=== PATIENT | female | born 1995 | race Caucasian/White ===

== ENCOUNTER 2019-05-22 09:08 | Emergency (ER) | payer OTHER, MEDICAID, SELFPAY ==
[2019-05-22 09:31] VITALS: BP 123/95; PULSE 65; RESP 18; TEMP 36.7; O2SAT 98; BMI 35.4
--- NOTE | 2019-05-22 09:39 | ED_ITS ---
Entered by Roland Doll, acting as scribe for HPI - Female Genitourinary General: Chief complaint: Vaginal Bleeding Stated complaint: bleeding/cramping 12wks preg Time Seen by Provider: 05/22/19 09:46 History of Present Illness: HPI Narrative: 24 yo female presents with vaginal bleeding, abd cramping. Pt states that this has been going on for 5 days. Pt states that she is . Pt states that this is her second . Pt states that she has been seen by Dr. Newsome at 6-7 weeks. Pt states that she has vaginal soreness. Pt states that she has some discharge but nothing abnormal. Pt states that she has had a headcold. MD elicited complaint: vaginal bleeding Onset (ago): day(s) (5 days) Location of symptoms: vaginal and low back Quality of pain: cramping and dull Consistency: intermittent Vaginal discharge: white Vaginal bleeding: moderate Associated symptoms: Reports abdominal pain, vaginal bleeding (Vaginal bleeding the combination of old and new blood coming from cervical loss.) and vaginal discharge; Deny headache(s), nausea or syncope Patient : Yes Date of Last Menstrual Period: 02/26/19 Review of Systems Const: Denies: fever, chills, body aches, fatigue, malaise or night sweats Eyes: Denies: change in vision or blurry vision ENMT: Denies: throat pain, oral sores/lesions, dental pain, nasal discharge or nasal congestion Card: Denies: chest pain, palpitations, irregular heart rhythm, edema, syncope, shortness of breath on exertion, shortness of breath when lying down or leg pain with exertion Resp: Denies: shortness of breath, productive cough, non-productive cough or wheezing GI: Reports: abdominal pain and cramping; Denies: nausea, vomiting, vomiting blood, coffee grounds in vomit, difficulty swallowing, heartburn/indigestion, diarrhea, constipation, blood in stool or black tarry stool : Reports: vaginal bleeding and vaginal discharge; Denies: flank pain, painful urination, urinary frequency, urinary urgency, urinary incontinence, blood in urine or pelvic pain Musc: Reports: back pain; Denies: neck pain, extremity pain, extremity swelling, joint pain or joint swelling Skin/Breast: Denies: rash, itching or redness Neuro: Denies: headache, numbness in extremities, weakness in extremities, c hanges in sensation, lack of coordination, difficulty walking, frequent falls, dizziness, vertigo or confusion Endo: Denies: excessive urination, excessive thirst, tired all the time or cold intolerance Sung/Lymph: Denies: easy bruising, easy bleeding, petechiae, enlarged lymph nodes or tender lymph nodes PFSH ED PFSH: Statuses (acute, chronic, etc) shown below reflect problem list status as previously entered and may not be historically accurate Surgical History History of hip surgery (Acute) Hx of tonsillectomy (Acute) Social History Smoking and tobacco status: never smoked Female Reproductive History: Date of last menstrual period: 02/26/19 Physical Exam Const: COMMON NORMALS: average body habitus, oriented x3 and alert GENERAL APPEARANCE: cooperative, comfortable, well kempt and well developed ORIENTATION/CONSCIOUSNESS: Yes awake, Yes oriented to person and Yes oriented to place HENMT: COMMON NORMALS: normocephalic, head/scalp atraumatic, EAC's normal, TM's normal bilaterally, external nose normal, moist oral mucous membranes and oropharynx normal HEAD & SCALP: normocephalic and atraumatic NOSE: external nose normal EXTERNAL AUDITORY CANAL: EAC's normal TYMPANIC MEMBRANE: TM's normal bilaterally MOUTH: oral and palatal mucosa normal, lip normal and tongue normal THROAT: posterior oropharynx normal and tonsils no rmal Eye: COMMON NORMALS: PERRL, EOMs intact bilaterally, conjunctivae normal and no scleral icterus CONJUNCTIVA: Yes conjunctivae normal PUPIL: Yes PERRL Neck/C-Spine: COMMON NORMALS: full ROM, no lymphadenopathy, supple, no meningeal signs and thyroid normal THYROID: thyroid normal and asymmetrical Lymph: LYMPHATIC: no lymphadenopathy noted Resp: COMMON NORMALS: normal respiratory effort, no retractions, no use of accessory muscles and clear to auscultation bilaterally AUSCULTATION: clear to auscultation bilaterally Cardio: COMMON NORMALS: regular rate and regular rhythm RATE: regular rate RHYTHM: regular rhythm HEART SOUNDS: no murmurs GI: COMMON NORMALS: normal to inspection, nondistended, normoactive bowel sounds, soft to palpation and no hepatosplenomegaly PALPATION: Yes soft and Yes no hepatosplenomegaly : COMMON NORMALS: Yes no CVA tenderness BLADDER/KIDNEY EXAM: Yes no CVA tenderness SPECULUM EXAM - VAGINA: Yes vaginal bleeding (Vaginal bleeding the combination of old and new blood coming from cervical loss.) Amount: medium/moderate SPECULUM EXAM - CERVIX: Yes cervical os open (No products of conception in the office.) and No tissue present in the cervical os OB/EXTERNAL & SPECULUM: cervical os open (No products of conception in the office.) and vaginal bleeding (Vaginal bleeding the combination of old and new blood coming from cervical loss.) Back/Pelvis: COMMON NORMALS: no CVA tenderness LUMBAR SPINE/LOWER BACK: Yes normal to inspection Extremity: COMMON NORMALS: no clubbing, cyanosis or edema, no calf tenderness and no pedal edema Neuro: COMMON NORMALS: oriented x3 SENSORIUM/ORIENTATION: Yes alert, Yes oriented to person and Yes oriented to place MENINGEAL SIGNS: Yes no meningeal signs Psych: APPEARANCE: Yes well kempt Skin: COMMON NORMALS: no rashes or lesions noted and skin turgor normal GENERAL SKIN EXAM: no rashes or lesions noted and turgor normal Course ED course: Discussed with the patient suspect she had miscarriage sometime ago already her beta-hCG is down to 6500 range she will need another beta-hCG later this week. Discussed with her she probably will continue to have some cramping and bleeding and may yet passed some tissue on ultrasound there was no heart tones did appear to be some tissue left within the uterus. There is no active bleeding at this time. Patient is Rh+ cultures done did call discussed Dr. Newsome he will anticipate seeing the patient later on this week. Vital Signs: Vital signs: Vital Signs Temperature 98.0 F 05/22/19 09:31 Pulse Rate 73 05/22/19 12:43 Respiratory Rate 18 05/22/19 12:43 Blood Pressure 113/76 05/22/19 12:43 Pulse Oximetry 98 05/22/19 12:43 MDM - Female Lab Data: Labs: Lab Results 05/22/19 05/22/19 05/22/19 Range/Units 09:55 09:55 09:55 WBC 7.8 (4.0-10.0) 10^3/ uL RBC 4.70 (4.1-5.3) 10^6/u L Hgb 13.5 (11.5-15.3) g/dL Hct 41.2 (37.0-47.0) % MCV 87.7 (81-99) fL MCH 28.7 (28.0-34.0) pg MCHC 32.8 (30.0-36.0) g/dL RDW 12.5 (12.1-15.1) % Plt Count 263 (130-400) 10^3/c mm MPV 9.4 (7.4-10.4) fL Neut % (Auto) 65.9 % Lymph % (Auto) 25.2 % [place] % (Auto) 5.5 % Eos % (Auto) 2.7 % Baso % (Auto) 0.3 % Neut # (Auto) 5.1 (1.8-7.7) 10^3/u L Lymph # (Auto) 2.0 (0.8-4.8) 10^3/u L [place] # (Auto) 0.4 (0.2-0.9) 10^3/u L Eos # (Auto) 0.2 (0.0-0.8) 10^3/u L Baso # (Auto) 0.0 (0.0-0.1) 10^3/u L Nucleated RBC % (a uto) 0 % Nucleated RBCs # 0.0 /100WBC Ser , Lexii i-Qnt 6953.00 mIU/mL Urine Color (Yellow) Urine Appearance (CLEAR) Urine pH (5-7) Ur Specific Gravit y (1.005-1.030) Urine Protein (Negative) Urine Glucose (UA) (Normal) Urine Ketones (Negative) Urine Occult Blood (Negative) Urine Nitrate (Negative) Urine Bilirubin (NEGATIVE) Urine Urobilinogen (Negative) mg/dL Ur Leukocyte Blessing ase (Negative) Urine RBC (0-2) /hpf Urine WBC (0-5) /hpf Ur Squamous Epith Cells (0-5) Urine Bacteria (NONE) Urine Mucus Blood Type A Positive 05/22/19 Range/Units 10:06 WBC (4.0-10.0) 10^3/ uL RBC (4.1-5.3) 10^6/u L Hgb (11.5-15.3) g/dL Hct (37.0-47.0) % MCV (81-99) fL MCH (28.0-34.0) pg MCHC (30.0-36.0) g/dL RDW (12.1-15.1) % Plt Count (130-400) 10^3/c mm MPV (7.4-10.4) fL Neut % (Auto) % Lymph % (Auto) % [place] % (Auto) % Eos % (Auto) % Baso % (Auto) % Neut # (Auto) (1.8-7.7) 10^3/u L Lymph # (Auto) (0.8-4.8) 10^3/u L [place]lette # (Auto) (0.2-0.9) 10^3/u L Eos # (Auto) (0.0-0.8) 10^3/u L Baso # (Auto) (0.0-0.1) 10^3/u L Nucleated RBC % (a uto) % Nucleated RBCs # /100WBC Ser , Lexii i-Qnt mIU/mL Urine Color Yellow (Yellow) Urine Appearance Clear (CLEAR) Urine pH 5.0 (5-7) Ur Specific Gravit y 1.020 (1.005-1.030) Urine Protein Trace (Negative) Urine Glucose (UA) Norm (Normal) Urine Ketones Negative (Negative) Urine Occult Blood 3+ H (Negative) Urine Nitrate Negative (Negative) Urine Bilirubin Neg (NEGATIVE) Urine Urobilinogen Norm (Negative) mg/dL Ur Leukocyte Blessing ase Negative (Negative) Urine RBC 25-40 H (0-2) /hpf Urine WBC None (0-5) /hpf Ur Squamous Epith Cells 10-15 H (0-5) Urine Bacteria Trace (NONE) Urine Mucus 2+ Blood Type Discharge Plan Discharge Patient Disposition: Home, Self-Care Clinical Impression: Spontaneous Condition: Stable Prescriptions: No Action Zantac 150 mg Tablet 150 mg PO BID RF: 0 28 mg iron- 800 mcg Tablet 1 tab PO DAILY RF: 0 Referrals: Ester Noyola DO [Primary Care Provider] - Bernard Newsome MD [Physician] - 4-7 days (folow up Serum BHCG) Discharge Diet: Usual diet Discharge Activity: Increase activity as tolerated Patient Instructions: Spontaneous Miscarriage (ED) Discharge Date/Time: 05/22/19 12:48 Coding Level of Care Code ED Court Reporter for Chg Fwd Exam Problem Focused The documentation recorded by the Lavon huitron Kialy, accurately reflects the service I personally performed and the decisions made by , Doug De La Vega, May 22, 2019 09:08
--- NOTE | 2019-05-22 09:44 | PC.NURSE ---
Patient denies passing any clots, states bleeding has changed back and forth from pink, brown-red, and bright red over the past 5 days. Patient c/o constant back ache with bleeding and intermittent cramping and pain in the LLQ of the abdomen.
--- NOTE | 2019-05-22 09:47 | US_ITS ---
WS: [id number] OB ultrasound, 05/22/2019 Clinical Data: viability Comparison: None. Findings: There is a single interuterine . heart rate and heart motion are not observed. There is a yolk sac present. The crown-rump length measured 1.0 cm and the gestational sac was not me asured. There is a probable subchorionic hematoma. The cervix appears patulous. The estimated gestational age 7w1d is with an SEMAJ of approximately 01/07/2020. The left ovary measured 2.1 cm x 2.6 cm x 2.6 cm. The right ovary measured 1.5 cm x 2.8 cm x 3.2 cm. No ovarian cyst or masses are seen. US/US OB lmt with transvaginal Impression: 1. Probable demise 2. Estimated gestational age of 7w1d with an SEMAJ of 01/07/2020. 3. No heart motion or heart rate is observed..
[2019-05-22 10:02] LABS: Basophils % 0.3 %; Eosinophils # 0.2 10^3/uL (0.0-0.8); Eosinophils % 2.7 %; Hematocrit 41.2 % (37.0-47.0); Hemoglobin 13.5 g/dL (11.5-15.3); Lymphocytes % 25.2 %; Mean Corpuscular HGB Conc 32.8 g/dL (30.0-36.0); Mean Corpuscular Hemoglobin 28.7 pg (28.0-34.0); Mean Corpuscular Volume 87.7 fL (81-99); Mean Platelet Volume 9.4 fL (7.4-10.4); Monocytes # 0.4 10^3/uL (0.2-0.9); Monocytes % 5.5 %; Neutrophils # 5.1 10^3/uL (1.8-7.7); Neutrophils % 65.9 %; Nucleated Red Blood Cells % 0 %; Platelet Count 263 10^3/cmm (130-400); Red Cell Distribution Width 12.5 % (12.1-15.1); White Blood Count 7.8 10^3/uL (4.0-10.0)
[2019-05-22 10:23] LABS: Add Urine Microscopic? YES; Bilirubin Urine Neg (NEGATIVE); Blood Urine 3+ (Negative); Glucose Urine UA Norm (Normal); Ketones Urine Negative (Negative); Leukocyte Esterase Urine Negative (Negative); Nitrate Urine Negative (Negative); Protein Urine Trace (Negative); Urine Appearance Clear (CLEAR); Urine Color Yellow (Yellow); Urobilinogen Urine Norm (Negative)
[2019-05-22 10:36] LABS: Add Urine Culture? No; Bacteria Urine TRACE; Mucus Urine 2+; RBC Urine 25-40 /hpf (0-2)
[2019-05-22 12:43] VITALS: BP 113/76; PULSE 73; RESP 18; O2SAT 98
== END 2019-05-22 12:48 | disposition home or self-care (01) ==
PROVIDERS: Emergency Provider Family Medicine; Family Provider Family Medicine; PCP Family Medicine
DX: O03.9 Complete or unspecified spontaneous abortion without complication (principal)
CPT/HCPCS: 36415; 76815; 76817; 81003; 84702; 85025; 86900; 87210; 87491; 87591; 87661; 99283; A9270; E0352

== ENCOUNTER 2019-05-23 16:28 | Inpatient (IN) | payer OTHER, MEDICAID, SELFPAY ==
[2019-05-23] VITALS (22 sets, daily range): BP systolic 78–125; BP diastolic 50–84; PULSE 72–104; RESP 15–24; TEMP 36.4–36.9; O2SAT 97–100; BMI 33.0
--- NOTE | 2019-05-23 17:06 | ED_ITS ---
Entered by Rachna Celaya, acting as scribe for Jordin Kaplan DO HPI - Female Genitourinary General: Chief complaint: Vaginal Bleeding Stated complaint: miscarrige Time Seen by Provider: 05/23/19 17:18 Source: patient and family Mode of arrival: wheelchair Limitations: altered mental status History of Present Illness: HPI Narrative: 24 yo female presents with heavy vaginal bleeding. per mother this started yesterday. per mother the pt is having a miscarriage and they prescribed her Misoprostol by pcp to help with it. last 2 hours the pt bleed through 14 pads in 2 hours. pt denies any other symptoms at this time. bleeding worsened 1 hour after the medications given by PCP. 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 MD elicited complaint: vaginal bleeding and possible miscarriage Onset (ago): hour(s) Location of symptoms: vaginal Severity: severe Severity scale (1-10): 10 Quality of pain: sharp Consistency: constant and progressively worsening Vaginal bleeding: heavy and # pads per hour (14 pads in 2 hours) Exacerbating factors: other Relieving factors: none Associated symptoms: Reports vaginal bleeding Treatment prior to arrival: other (Misoprostol 100 mcg by pcp) Date of Last Menstrual Period: 02/26/19 Review of Systems General: Reports: 10 or more systems reviewed and unremarkable except in HPI and below PFSH ED PFSH: Statuses (acute, chronic, etc) shown below reflect problem list status as previously entered and may not be historically accurate Surgical History History of hip surgery (Acute) Hx of tonsillectomy (Acute) Social History Smoking and tobacco status: never smoked Female Reproductive History: Date of last menstrual period: 02/26/19 Physical Exam Narrative: EXAM NARRATIVE: Patient arrived in the emergency room by private vehicle and was immediately taken back to room 11. Family reports patient had a miscarriage yesterday and has been bleeding heavily ever since. Patient was found unresponsive on the floor home. Upon arrival to the emergency room the patient will awaken to verbal commands. She is extremely pale and has white lips and gums. Neck/C-Spine: COMMON NORMALS: no JVD Resp: COMMON NORMALS: normal respiratory effort, no retractions, no use of accessory muscles and clear to auscultation bilaterally AUSCULTATION: clear to auscultation bilaterally Cardio: COMMON NORMALS: no JVD, regular rate and regular rhythm RATE: regular rate RHYTHM: regular rhythm : SPECULUM EXAM - VAGINA: Yes vaginal bleeding OB/EXTERNAL & SPECULUM: vaginal bleeding Skin: GENERAL SKIN EXAM: pallor (Severe) Discharge Plan Discharge Prescriptions: No Action Zantac 150 mg Tablet 150 mg PO BID RF: 0 28 mg iron- 800 mcg Tablet 1 tab PO DAILY RF: 0 Coding Level of Care Code ED Business Continuity Coordinator for Chg Fwd The documentation recorded by the Yomi huitron Bridget Annette, accurately reflects the service I personally performed and the decisions made by , Jordin Kaplan, DO
[2019-05-23 17:31] LABS: INR 1.05 (0.8-1.2)
[2019-05-23 17:32] LABS: Partial Thromboplastin Time 25.4 SECONDS (23.9-36.7)
[2019-05-23 17:34] LABS: Basophils % 0.2 %; Eosinophils # 0.1 10^3/uL (0.0-0.8); Eosinophils % 0.5 %; Hematocrit 34.8 % (37.0-47.0); Hemoglobin 11.2 g/dL (11.5-15.3); Lymphocytes # 2.2 10^3/uL (0.8-4.8); Mean Corpuscular HGB Conc 32.2 g/dL (30.0-36.0); Mean Corpuscular Hemoglobin 28.4 pg (28.0-34.0); Mean Corpuscular Volume 88.3 fL (81-99); Mean Platelet Volume 10.9 fL (7.4-10.4); Monocytes # 0.6 10^3/uL (0.2-0.9); Monocytes % 4.5 %; Neutrophils # 10.6 10^3/uL (1.8-7.7); Neutrophils % 78.3 %; Nucleated Red Blood Cells % 0 %; Platelet Count 242 10^3/cmm (130-400); Red Blood Count 3.94 10^6/uL (4.1-5.3); Red Cell Distribution Width 12.6 % (12.1-15.1); White Blood Count 13.5 10^3/uL (4.0-10.0)
--- NOTE | 2019-05-23 17:37 | ANES.PREANES ---
Pre-Anesthetic Assessment Pre-Anesthetic Assessment: Height/Weight: Height 1.78 m Weight 104.326 kg Pulse Resp BP Pulse Ox 86 17 118/71 100 05/23/19 17:24 05/23/19 17:24 05/23/19 17:24 05/23/19 17:24 Preop Diagnosis: spontaneous incomplete with hemorrhage Proposed Procedure: emgergen d and c Last intake: 1130 waffles Exam: Pre-Anes Outpt Exam: alert, oriented x 3, clear to auscultation bilaterally and regular rate & rhythm Airway: Submandibular: WNL Cervical ROM: WNL MP: 2 Dentition: Full History/ROS: No significant history except as noted Pulmonary: Pulmonary: None reported CV/HEM: CV/HEM: None reported : : None reported Hepatic: Hepatic: None reported GI: GI: None reported Metabolic: Metabolic: None reported Musc/skel: Musc/skel: None reported Neuropsych: Neuropsych: None reported Anesthetic Plan: ASA status: E Anesthesia: Anesthesia Evaluation and General Risk of > 500 ml blood loss (7ml/kg in children): Yes, adequate IV access and fluids planned PFSH Anesthesia PFSH: Surgical History History of hip surgery (Acute) Hx of tonsillectomy (Acute) Social History Smoking and tobacco status: never smoked Female Reproductive History: Date of last menstrual period: 02/28/19 Data Anesthesia Labs: Other Labs: Laboratory Results - last 48 hr 05/23/19 17:10 PT 14.10 H INR 1.05 APTT 25.4 Cardiac Studies: No Data to Display
[2019-05-23] MEDS: sodium chloride 0.9% 1,000 ML 999 ML IV (17:58)
[2019-05-23] MEDS: sodium chloride 0.9% 500 ML 999 ML IV (17:59)
--- NOTE | 2019-05-23 18:00 | PC.NURSE ---
Patient arrived to Emergency room 11 via Wheelchair, patient was pale, diaphoretic and in and out of conciuosness, IVs were established, fluids and O neg blood started, patient was sent to OR.
--- NOTE | 2019-05-23 18:22 | ANE.PACU ---
 Inpatient post-anesthesia follow up: Airway intact: Yes Vital signs: Temperature 98.4 F Pulse Rate [Apical ] 90 Pulse Rate 83 Respiratory Rate 22 Blood Pressure [Ri ght Arm] 118/71 Blood Pressure 105/77 Pulse Oximetry 99 Oxygen Delivery Me thod Room Air Oxygen Flow Rate Fraction of Inspir ed Oxygen Hydration adequate: Yes Nausea and vomiting: No Pain level: 3 Mental status: Baseline
[2019-05-23] MEDS: ketorolac 30 mg/mL INJ IVP (18:28)
--- NOTE | 2019-05-23 18:28 | PM.OP ---
Operative Report Post-Operative Note: Date of procedure: 05/23/19 Preop Diagnosis: Incomplete with hemorrhage Post-op diagnosis: same Procedure Done: Dilation and curettage with suction for treatment of miscarriage Specimens removed/disposition: Products of conception Surgeon: Jaziel Atkinson Anesthesia: general Estimated blood loss (mL): 150 Complications: None Findings: Cervix 2-1/2 to 3 cm dilated with placental tissue coming through the cervix. Large amount of clots present within the vagina at time of prep. Condition: stable Disposition: floor Operative Report: Brief History: Patient is a 24-year-old [id number] who is approximately 12 weeks gestation. She had presented to the ER due to heavy bleeding. She was known to be and had been evaluated in the ER yesterday with bleeding and was found to have a demise. Her primary care doctor, Dr. Newsome, had prescribed her misoprostol to bring on/complete the miscarriage. She had taken that this morning at around 10 to 10:30. She started cramping after that and started bleeding heavier as the day went on. She started passing large clots feeling lightheaded and dizzy with near syncopal episode at home. She had a syncopal episode in the ER and was emergently brought back for evaluation and was found to be bleeding heavily. She was initially stabilized and then brought to the OR for D&C with suction. Procedure: Patient was taken to the operating room where general anesthesia was obtained. She was prepped and draped in the usual sterile fashion in the dorsal supine position with legs in Ankur style stirrups. Sequential compression boots were placed prior to starting the case. Patient had voided just before coming to the operating room. Exam under anesthesia was performed. Cervix was 2-1/2 to 3 cm dilated with placental tissue coming through the cervix. Clots and blood were present within the vagina. Weighted speculum was placed in the vagina and the cervix was grasped with a single-tooth tenaculum. A paracervical block was performed using 12 mL of 1% lidocaine with epinephrine. Using a ring forceps, placental tissue was teased from within the cervix. A size 11 suction curette was used and suction curettage performed until no further tissue was obtained. Sharp curettage was performed until there was a gritty texture throughout the endometrial cavity. Suction curettage was repeated until no further tissue was obtained. No tissue was obtained. Tenaculum was removed and there was minimal bleeding from the tenaculum site. Patient tolerated the procedure well. Sponge and needle counts were correct. Coding Level of Care Code Acute Traffic Survey Technician for Chg Winifred
[2019-05-23] MEDS: fentaNYL 50 mcg/mL INJ 2mL IVP ×2 (18:30→18:47)
--- NOTE | 2019-05-23 18:37 | P.HP_ITS ---
Providers/Chief Complaint Primary Care Provider: Ester Noyola Chief Complaint: miscarrige History of Present Illness Patient is a 24-year-old white female 2, para 1-0-0-1 who is approximately 12 weeks . She had presented to the ER due to heavy bleeding and near syncopal episode at home. She had had a syncopal episode in the ER. I was then acutely consulted due to the bleeding. On my arrival in the ER, patient had 2 IVs present and blood was being started. She was responsive at that time. Patient reports that she had been having bleeding for several days and as a result came to the ER yesterday and was ev aluated. She was found to have a demise at that time with the baby approximately a week smaller than expected. Her primary care for OB, Dr. Newsome, had prescribed her misoprostol 800 mcg to be taken this morning to promote the miscarriage. She stated that she started cramping after this and then had increased bleeding through the day. She stated that she had taken the medication around 10 to 10:30 in the morning. The bleeding became very heavy with passage of large clots. Her family had checked on her and found her semi- responsive with the heavy bleeding and brought her to the ER. Review of Systems Const: Denies: fever or chills Eyes: Denies: change in vision ENMT: Denies: throat pain or nasal congestion Card: Reports: lightheadedness; Denies: chest pain or palpitations Resp: Denies: shortness of breath, productive cough, non-productive cough or wheezing GI: Reports: abdominal pain; Denies: nausea or vomiting : Reports: vaginal bleeding; Denies: painful urination or vaginal discharge Neuro: Reports: dizziness; Denies: headache Psych: Denies: anxiety or depression Endo: Denies: excessive urination, excessive thirst, cold intolerance or hot flashes Sung/Lymph: Denies: easy bruising or easy bleeding Medications/Allergies Home Medications Medication Instructions Recorded Confirmed Last Taken Type misoprostol See Rx Instructions .ROUTE .COMPLEX 05/23/19 05/23/19 Unknown History Allergies Allergy/AdvReac Type Severity Reaction Status Date / Time No Known Allergies Allergy Unverified 05/22/19 10:33 PFSH Acute PFSH: Statuses (acute, chronic, etc) shown below reflect problem list status as previously entered and may not be historically accurate Medical History Heartburn (Acute) Miscarriage (Acute) Surgical History History of hip surgery (Acute) Hx of tonsillectomy (Acute) Family History Family/Other No problems noted. Social History Smoking and tobacco status: never smoked Substance/Drug Use: never Female Reporductive History: Date of last menstrual period: 02/28/19 Vitals/I&O/Wt Last Vital Signs Temp 98.4 F 05/23/19 17:20 Pulse 83 05/23/19 17:35 Resp 22 H 05/23/19 17:35 BP 105/77 05/23/19 17:40 Pulse Ox 99 05/23/19 17:35 05/23/19 05/23/19 05/23/19 06:59 14:59 22:59 Intake Total 700 / 700 Balance 700 / 700 Weight last 48 hrs Weight 230 lb Physical Exam Const: COMMON NORMALS: alert and well nourished GENERAL APPEARANCE: cooperative, well developed and in distress (Moderate) NUTRITIONAL APPEARANCE: obese ORIENTATION/CONSCIOUSNESS: Yes oriented to person, Yes oriented to place and Yes oriented to time Neck/C-Spine: GENERAL: Yes trachea midline Lymph: LYMPHATIC: no lymphadenopathy noted (Pelvic) Resp: COMMON NORMALS: normal respiratory effort and clear to auscultation bilaterally AUSCULTATION: clear to auscultation bilaterally Cardio: COMMON NORMALS: regular rate, regular rhythm, no gallops, no murmurs and no rub RATE: regular rate RHYTHM: regular rhythm GI: COMMON NORMALS: soft to palpation, no hepatosplenomegaly and no masses AUSCULTATION: Yes normoactive bowel sounds PALPATION: Yes soft, Yes tender (Suprapubic area), No guarding, Yes no hepatosplenomegaly and No hernia : EXTERNAL FEMALE EXAM: No hernia OTHER: External genitalia: Normal in appearance with no lesions seen. Blood present externally. Anus/perineum: No perineal lesions noted. Urethral meatus: Normal in size and location with no lesions or prolapse noted Urethra: Nontender with no palpable masses noted. Bladder: Nontender with no palpable masses noted. Vagina: Blood and clots present which were evacuated on exam (approximately 500 mL by visualization). No palpable masses noted. Cervix: 2-1/2 to 3 cm dilated with tissue coming through the cervix. Normal in appearance with no lesions or discharge noted. Uterus: 10 to 12 weeks size and tender to palpation. Adnexa: Neither ovary palpable. Neuro: SENSORIUM/ORIENTATION: Yes alert, Yes oriented to person, Yes oriented to place and Yes oriented to time Psych: COMMON NORMALS: affect normal MOOD & AFFECT: Yes euthymic mood Skin: GENERAL SKIN EXAM: pallor A&P Assessment and plan (1) Incomplete spontaneous with delayed or excessive hemorrhage: Patient with excessive blood loss with incomplete in process. Patient was hypotensive in the ER initially. She was in the process of receiving 2 units of O- blood on my arrival. IV fluids were running as well. Patient was responsive at this time with normal blood pressure and heart rate. I discussed with patient and family that she is bleeding heavily from the vagina due to everything not having passed and that the only way to control the bleeding would be to finish emptying out the uterus. I recommended that she be emergently taken to the OR for D&C. Risks of the surgery was discussed with the patient and family. Potential need for additional blood was discussed. Questions were answered. They are in agreement at this time. Patient is being taken emergently for dilation and curettage with suction. Status: Acute Code(s): O03.1 - Delayed or excessive hemorrhage following incomplete spontaneous Attestations Medical Necessity Statement*: Patient with acute bleeding from incomplete requiring transfusion in the ER. She will need to be monitored at least through the night with serial H&H to see if additional blood will be needed and to monitor for further blood loss. Coding Level of Care Code Acute Packing Supervisor for Marcela Vitale Diagnoses Incomplete spontaneous with delayed or excessive hemorrhage O03.1
--- NOTE | 2019-05-23 18:56 | SUR.PHASEI ---
4616 OB WILL RETURN CALL WHEN THEY HAVE A NURSE ASSIGNED TO PATIENT.
--- NOTE | 2019-05-23 19:31 | SUR.PHASEI ---
190 PATIENT TO OB VIA GURNEY. A/OX3. RR EVEN AND UNLABORED. PATIENT NOTED TO BE PALE. NO DISTRESS. FAMILY AT BEDSIDE.
[2019-05-23 21:20] LABS: Hematocrit 32.1 % (37.0-47.0); Hemoglobin 10.6 g/dL (11.5-15.3); Mean Corpuscular Hemoglobin 28.8 pg (28.0-34.0); Mean Corpuscular Volume 87.2 fL (81-99); Mean Platelet Volume 9.8 fL (7.4-10.4); Platelet Count 196 10^3/cmm (130-400); Red Blood Count 3.68 10^6/uL (4.1-5.3); Red Cell Distribution Width 13.2 % (12.1-15.1); White Blood Count 13.7 10^3/uL (4.0-10.0)
[2019-05-23] MEDS: lactated ringers 1,000 ML 125 ML IV (22:40)
[2019-05-24] VITALS (16 sets, daily range): BP systolic 90–116; BP diastolic 45–72; PULSE 72–94; RESP 14–18; TEMP 36.5–36.8; O2SAT 98–100
[2019-05-24] MEDS: HYDROcodone-acetaminophen 5-325 mg Tablet PO ×4 (00:22→13:43)
[2019-05-24 04:59] LABS: Basophils % 0.1 %; Eosinophils # 0.1 10^3/uL (0.0-0.8); Eosinophils % 1.3 %; Hematocrit 22.8 % (37.0-47.0); Hemoglobin 7.4 g/dL (11.5-15.3); Lymphocytes # 2.5 10^3/uL (0.8-4.8); Lymphocytes % 27.8 %; Mean Corpuscular HGB Conc 32.5 g/dL (30.0-36.0); Mean Corpuscular Hemoglobin 28.8 pg (28.0-34.0); Mean Corpuscular Volume 88.7 fL (81-99); Mean Platelet Volume 9.8 fL (7.4-10.4); Monocytes # 0.5 10^3/uL (0.2-0.9); Neutrophils # 5.8 10^3/uL (1.8-7.7); Neutrophils % 64.4 %; Nucleated Red Blood Cells % 0 %; Platelet Count 150 10^3/cmm (130-400); Red Blood Count 2.57 10^6/uL (4.1-5.3); Red Cell Distribution Width 13.6 % (12.1-15.1)
[2019-05-24] MEDS: docusate sodium 100 mg Capsule PO (10:00)
--- NOTE | 2019-05-24 13:24 | ANE.PACU ---
 Inpatient post-anesthesia follow up: Airway intact: Yes Vital signs: Temperature 98.1 F Pulse Rate [Apical ] 94 Pulse Rate 73 Respiratory Rate 16 Blood Pressure [Ri ght Arm] 116/45 Blood Pressure 97/67 Pulse Oximetry 98 Oxygen Delivery Me thod Room Air Oxygen Flow Rate Fraction of Inspir ed Oxygen Hydration adequate: No Nausea and vomiting: No Mental status: Baseline
[2019-05-24 14:28] LABS: Basophils % 0.2 %; Eosinophils # 0.1 10^3/uL (0.0-0.8); Eosinophils % 0.9 %; Hematocrit 33.4 % (37.0-47.0); Hemoglobin 10.8 g/dL (11.5-15.3); Lymphocytes # 2.7 10^3/uL (0.8-4.8); Lymphocytes % 30.5 %; Mean Corpuscular HGB Conc 32.3 g/dL (30.0-36.0); Mean Corpuscular Hemoglobin 28.1 pg (28.0-34.0); Mean Corpuscular Volume 86.8 fL (81-99); Mean Platelet Volume 10.3 fL (7.4-10.4); Monocytes # 0.5 10^3/uL (0.2-0.9); Monocytes % 5.6 %; Neutrophils # 5.5 10^3/uL (1.8-7.7); Neutrophils % 62.3 %; Nucleated Red Blood Cells % 0 %; Platelet Count 186 10^3/cmm (130-400); Red Blood Count 3.85 10^6/uL (4.1-5.3); White Blood Count 8.9 10^3/uL (4.0-10.0)
--- NOTE | 2019-05-24 15:26 | PM.DCS ---
Discharge Providers Date of Admission: 05/23/19 18:57 Date of Discharge: 05/25/19 Attending Provider at Admission: Jaziel Atkinson Attending Provider at Discharge: Jaziel Atkinson Primary Care Provider: Ester Noyola Diagnoses at Discharge Discharge Diagnosis (1) Incomplete spontaneous with delayed or excessive hemorrhage: Status: Resolved (2) Acute blood loss anemia: Status: Acute Reason for Visit Reason for Visit: Reason For Visit: miscarrige Hospital Course Hospital Course: Patient is a 24-year-old white female 2, para 1-0-0-1 who was approximately 12 weeks gestation. She had presented to the ER due to heavy bleeding and a near syncopal episode at home. While in the ER she was reported as having a syncopal episode. She was found to be acutely bleeding vaginally. She reported having been diagnosed with a demise on 05/22 and was treated with Cytotec in the morning of 05/23 to bring on the actual miscarriage. Following this she started cramping badly and then started bleeding heavily. Her family reported that they had went to check on her and found her minimally responsive and brought her to the ER. In the ER she had IV started and given fluid bolus. She received 2 units of emergency release uncrossed matched O- blood. During this process, she became responsive with normal heart rate and normal blood pressure. I was consulted during this time and performed a bimanual exam with multiple clots and blood evacuated from the vagina, estimated to be approximately 500 mL. The cervix had tissue present within it. At this point in order to stop further bleeding, decision was made to take her to the OR emergently for a D&C. Patient had a D&C with suction performed with placental tissue being evacuated from the uterus. She received Pitocin in the IV fluids following the procedure and had very minimal bleeding. Due to the degree of bleeding, she was transferred to the unit for further monitoring during the night. H&H approximately 2 hours after surgery was completed showed an hemoglobin of 10.6 and hematocrit 32.1. (She had received 2 units PRBCs in the ER). POSTOPERATIVE DAY 1 Patient reported being lightheaded and dizzy when she got out of bed during the night. She also reported feeling very weak. She reported that her bleeding had significantly slowed and had almost completely stopped. She denied shortness of breath or chest pains. She was tolerating a regular diet, but reported having poor appetite. She denied problems with urination. Hemogram in the morning had shown an H&H of 7.4 and 22.8. Since she was symptomatic she was transfused with 2 more units of PRBCs. She reported occasional mild lightheadedness with ambulation after the 2 units. As a result H&H was rechecked which was 10.8 and 33.4. Based upon these results, decision was made not to transfuse with further blood. She was encouraged to increase her fluid intake to help with her symptoms and was then discharged to home. Physical Exam Const: COMMON NORMALS: no apparent distress, average body habitus, alert and well nourished GENERAL APPEARANCE: well developed ORIENTATION/CONSCIOUSNESS: Yes oriented to person, Yes oriented to place and Yes oriented to time Resp: COMMON NORMALS: normal respiratory effort and clear to auscultation bilaterally AUSCULTATION: clear to auscultation bilaterally Cardio: COMMON NORMALS: regular rate, regular rhythm, no gallops, no murmurs and no rub RATE: regular rate RHYTHM: regular rhythm GI: COMMON NORMALS: soft to palpation, non-tender, no hepatosplenomegaly and no masses AUSCULTATION: Yes normoactive bowel sounds PALPATION: Yes soft, Yes no hepatosplenomegaly and No hernia : EXTERNAL FEMALE EXAM: No hernia Extremity: OTHER: No calf pain bilaterally. Neuro: SENSORIUM/ORIENTATION: Yes alert, Yes oriented to person, Yes oriented to place and Yes oriented to time Psych: COMMON NORMALS: affect normal MOOD & AFFECT: Yes euthymic mood Discharge Data Data Completed and Pending: Labs from last 24 hours 05/24/19 05/24/19 05/23/19 14:02 04:45 21:13 WBC 8.9 9.0 13.7 H RBC 3.85 L 2.57 L 3.68 L Hgb 10.8 L D 7.4 L D 10.6 L Hct 33.4 L D 22.8 L 32.1 L MCV 86.8 88.7 87.2 MCH 28.1 28.8 28.8 MCHC 32.3 32.5 33.0 RDW 14.0 13.6 13.2 Plt Count 186 150 196 MPV 10.3 9.8 9.8 Neut % (Auto) 62.3 64.4 Lymph % (Auto) 30.5 27.8 [place] % (Auto) 5.6 6.0 Eos % (Auto) 0.9 1.3 Baso % (Auto) 0.2 0.1 Neut # (Auto) 5.5 5.8 Lymph # (Auto) 2.7 2.5 [place] # (Auto) 0.5 0.5 Eos # (Auto) 0.1 0.1 Baso # (Auto) 0.0 0.0 Nucleated RBC % (a uto) 0 0 Nucleated RBCs # 0.0 0.0 PT INR APTT Blood Type Antibody Screen Crossmatch 05/23/19 05/23/19 05/23/19 17:10 17:10 17:10 WBC 13.5 H RBC 3.94 L Hgb 11.2 L Hct 34.8 L MCV 88.3 MCH 28.4 MCHC 32.2 RDW 12.6 Plt Count 242 MPV 10.9 H Neut % (Auto) 78.3 Lymph % (Auto) 16.0 [place] % (Auto) 4.5 Eos % (Auto) 0.5 Baso % (Auto) 0.2 Neut # (Auto) 10.6 H Lymph # (Auto) 2.2 [place] # (Auto) 0.6 Eos # (Auto) 0.1 Baso # (Auto) 0.0 Nucleated RBC % (a uto) 0 Nucleated RBCs # 0.0 PT 14.10 H INR 1.05 APTT 25.4 Blood Type A Positive Antibody Screen Negative Crossmatch See Detail Vitals: Last Vital Signs Temp 97.7 F 05/24/19 12:44 Pulse 78 05/24/19 12:44 Resp 15 05/24/19 12:44 BP 93/62 05/24/19 12:44 Pulse Ox 98 05/24/19 11:20 Discharge Plan Discharge Patient Disposition: Home, Self-Care Condition: Stable Prescriptions: New hydrocodone-acetaminophen 5-325 mg Tablet 1 - 2 tab PO Q6H PRN (Reason: Moderate To Severe Pain) Qty: 20 RF: 0 ibuprofen 800 mg Tablet 800 mg PO TID PRN (Reason: pain) Qty: 30 RF: 0 ferrous sulfate 325 mg (65 mg iron) tablet 325 mg PO BID Qty: 60 RF: 1 Continued ranitidine HCl [Zantac] 150 mg Tablet 150 mg PO BID RF: 0 PNV cmb#95-ferrous fumarate-FA [] 28 mg iron- 800 mcg Tablet 1 tab PO DAILY RF: 0 Discontinued misoprostol 100 mcg Tablet See Rx Instructions .ROUTE .COMPLEX RF: 0 Discharge Orders: Discharge Order (Routine); Ordered 05/24/19 Ordered By: Jaziel Atkinson Referrals: Jaziel Atkinson MD [Physician] - 06/05/19 2:30 pm (Follow-up of miscarriage) Discharge Diet: Regular Discharge Activity: Increase activity as tolerated Patient Instructions: Dilation and Curettage (DC), OB Discharge Report Activity Restrictions/Additional Instructions: Nothing in vagina until all bleeding has stopped or until after follow-up appointment, which ever is longer. Discharge Date/Time: 05/24/19 16:40 Discharge Attestations Time Spent in Discharge Care*: less than 30 min Quality Metrics Clinical Quality Measures During this hospital stay, did patient experience: None Coding Level of Care Code Acute Table Games Dual Rate Supervisor for Chg Fwd Diagnoses Incomplete spontaneous with delayed or excessive hemorrhage O03.1 Acute blood loss anemia D62
== END 2019-05-24 16:40 | disposition home or self-care (01) | DRG 770 ==
LOC: ER 17:32 → OR 17:47 → OBGYN 18:58
PROVIDERS: Admitting Provider Obstetrics & Gynecology; Emergency Provider Family Medicine; Family Provider Family Medicine; PCP Family Medicine; Visit Provider Obstetrics & Gynecology
PROC: 10D17ZZ Extraction of Products of Conception, Retained, Via Natural or Artificial Opening (ICD-10-PCS; principal; 2019-05-23 17:45)
DX: O03.1 Delayed or excessive hemorrhage following incomplete spontaneous abortion (principal); D62 Acute posthemorrhagic anemia; O90.81 Anemia of the puerperium
CPT/HCPCS: 36415; 36430; 80500; 85025; 85027; 85610; 85730; 86850; 86900; 88305; 99281; C1751; J0330; J1885; J2001; J2370; J2405; J2590; J2704; J3010; J3490; J7030; J7040; P9016

== ENCOUNTER 2019-05-30 18:12 | Emergency (ER) | payer OTHER, MEDICAID, SELFPAY ==
[2019-05-30 18:16] VITALS: BP 156/94; PULSE 76; RESP 18; TEMP 36.7; O2SAT 100; BMI 34.7
[2019-05-30 19:02] LABS: Basophils % 0.1 %; Eosinophils # 0.3 10^3/uL (0.0-0.8); Eosinophils % 3.4 %; Hematocrit 35.2 % (37.0-47.0); Hemoglobin 11.2 g/dL (11.5-15.3); Lymphocytes # 2.5 10^3/uL (0.8-4.8); Lymphocytes % 29.3 %; Mean Corpuscular HGB Conc 31.8 g/dL (30.0-36.0); Mean Corpuscular Hemoglobin 28.3 pg (28.0-34.0); Mean Corpuscular Volume 88.9 fL (81-99); Mean Platelet Volume 9.1 fL (7.4-10.4); Monocytes # 0.4 10^3/uL (0.2-0.9); Monocytes % 4.4 %; Neutrophils # 5.3 10^3/uL (1.8-7.7); Neutrophils % 62.4 %; Nucleated Red Blood Cells % 0 %; Platelet Count 289 10^3/cmm (130-400); Red Blood Count 3.96 10^6/uL (4.1-5.3); Red Cell Distribution Width 13.8 % (12.1-15.1); White Blood Count 8.4 10^3/uL (4.0-10.0)
[2019-05-30 19:49] LABS: Alanine Aminotransferase 26 U/L (0-33); Albumin Level 4.6 g/dL (3.5-5.2); Alkaline Phosphatase 67 IU/L (35-105); Anion Gap 15.5 (5-19); Aspartate Amino Transferase 23 U/L (0-32); Blood Urea Nitrogen 12 mg/dL (6-20); Calcium 9.7 mg/Dl (8.6-10.0); Carbon Dioxide 25 mmol/L (22-29); Chloride 102 mmol/L (98-107); Globulin 2.6 g/dL (1.3-4.6); Glomerular Filtration Rate 88.1 mL/min (90-130); Glucose 96 mg/dL (74-109); Potassium 4.5 mmol/L (3.5-5.1); Sodium 138 mmol/L (136-145); Total Bilirubin 0.2 mg/dL (0.15-1.2); Total Protein 7.2 g/dL (6.6-8.7)
--- NOTE | 2019-05-30 20:38 | ED_ITS ---
Entered by Paris Langston, acting as scribe for Aidee Michaud Delbert May 30, 2019 18:12 HPI - Dizziness General: Chief Complaint: Dizziness Stated Complaint: dizzy/miscarrige Time Seen by Provider: 05/30/19 20:38 Source: patient Mode of arrival: ambulatory Limitations: no limitations History of Present Illness: HPI Narrative: 24 yo Female presents to ED with complaint of dizziness. Pt states that last Wednesday she came into the ED and was admitted for an emergency D&C. Pt states that she was discharged last Wednesday. Pt states that she has been bleeding lightly since then but it stopped yesterday. Pt states that she has had a headache and been light headed. Pt states that she gets the feeling that the room is spinning. MD elicited complaint: dizziness and lightheadedness Pertinent past history: other (recent miscarriage and D&C) Onset (ago): day(s) (today) Timing: gradual onset Severity: moderate Description: room spinning and lightheadedness Context: at rest History of similar symptoms: No Exacerbating factors: nothing Relieving factors: nothing Associated symptoms: Reports no associated symptoms and headache(s); Denies abnormal vaginal bleeding, change in hearing, chest pain, chills, diaphoresis, ear discharge, malaise, nausea, palpitations, syncope or vomiting Associated neuro symptoms: Reports no associated symptoms Review of Systems General: Reports: other (negative unless marked) Const: Denies: fever, chills, body aches, fatigue, malaise or diaphoresis Eyes: Denies: change in vision or blurry vision ENMT: Denies: throat pain, painful swallowing, hoarseness, ear pain, ear discharge, Change in hearing or nasal discharge Card: Denies: chest pain, palpitations, irregular heart rhythm, syncope, pre- syncope, shortness of breath on exertion or shortness of breath when lying down Resp: Denies: shortness of breath, productive cough, non-productive cough, wheezing, coughing up blood or chest congestion GI: Denies: abdominal pain, nausea, vomiting, vomiting blood, coffee grounds in vomit, diarrhea, constipation, cramping, blood in stool or black tarry stool : Denies: flank pain, painful urination, urinary frequency, urinary urgency, decreased urine ouput, urinary incontinence or blood in urine Musc: Denies: neck pain, back pain, extremity pain, extremity swelling, joint pain, joint swelling, joint warmth or joint stiffness Skin/Breast: Denies: rash, skin tenderness or yellow skin Neuro: Reports: headache and dizziness Endo: Denies: excessive thirst, tired all the time, cold intolerance, excessive sweating, flushing or hot flashes Sung/Lymph: Denies: easy bruising, easy bleeding, petechiae or enlarged lymph nodes All/Imm: Denies: hives, throat swelling, tongue swelling, facial swelling or acute wheezing PFSH ED PFSH: Statuses (acute, chronic, etc) shown below reflect problem list status as previously entered and may not be historically accurate Medical History Heartburn (Acute) Miscarriage (Acute) Surgical History History of hip surgery (Acute) Hx of tonsillectomy (Acute) Family History Family/Other No problems noted. Social History Smoking and tobacco status: never smoked Female Reproductive History: Date of last menstrual period: 02/28/19 Physical Exam Const: COMMON NORMALS: no apparent distress, oriented x3, no limitations, healthy appearing and well nourished EXAM LIMITATIONS: no altered mental status GENERAL APPEARANCE: cooperative, well kempt and well developed ORIENTATION/CONSCIOUSNESS: Yes awake HENMT: COMMON NORMALS: normocephalic, head/scalp atraumatic, hearing grossly normal bilaterally, external ears normal, EAC's normal, external nose normal and moist oral mucous membranes HEAD & SCALP: normal to inspection, normocephalic and atraumatic FACE & SINUS: normal facial exam and face symmetric NOSE: external nose normal and nares normal EXTERNAL EAR: Yes external ears normal EXTERNAL AUDITORY CANAL: EAC's normal MOUTH: oral and palatal mucosa normal and tongue normal Eye: COMMON NORMALS: PERRL, EOMs intact bilaterally, conjunctivae normal and no scleral icterus GENERAL EYE: normal appearance of both eyes and normal light reflex CONJUNCTIVA: Yes conjunctivae normal SCLERA: sclerae normal CORNEA: Yes corneas normal PUPIL: Yes PERRL DIRECT OPHTHALMOSCOPY: Yes normal light reflex Neck/C-Spine: COMMON NORMALS: full ROM, no lymphadenopathy, supple, no meningeal signs and no JVD GENERAL: Yes normal visual inspection and Yes trachea midline CERVICAL SPINE: Yes cervical ROM normal Chest: COMMONS NORMALS: inspection of chest normal and palpation of chest normal Resp: COMMON NORMALS: normal respiratory effort, no retractions, no use of accessory muscles and clear to auscultation bilaterally EFFORT & INSPECTION: Yes able to speak in complete sentences AUSCULTATION: clear to auscultation bilaterally Cardio: COMMON NORMALS: no JVD, regular rate, regular rhythm, S1 normal heart sound, S2 normal heart sound, no gallops, no clicks, no murmurs and no rub JUGULAR VENOUS DISTENTION: no JVD RATE: regular rate RHYTHM: regular rhythm HEART SOUNDS: S1 normal and S2 normal GI: COMMON NORMALS: soft to palpation, non-tender, no hepatosplenomegaly and no masses INSPECTION: Yes normal to inspection PALPATION: Yes soft and Yes no hepatosplenomegaly : COMMON NORMALS: Yes no CVA tenderness BLADDER/KIDNEY EXAM: Yes no CVA tenderness Back/Pelvis: COMMON NORMALS: no CVA tenderness, thoracic and lumbar spine normal to inspection, no thoracic nor lumbar tenderness and thoraco-lumbar ROM normal Extremity: COMMON NORMALS: normal to inspection, full ROM, normal capillary refill, no joint enlargement, no clubbing, cyanosis or edema and no calf tenderness Neuro: COMMON NORMALS: oriented x3, CN's II-XII intact bilaterally, moves all extremities, no focal motor deficits and no sensory deficits noted MENINGEAL SIGNS: Yes no meningeal signs Psych: COMMON NORMALS: mental status grossly normal, thought process normal, cooperative, affect normal, speech normal and activity/motor behavior normal APPEARANCE: Yes well kempt SPEECH: Yes normal speech THOUGHT PROCESS: normal thought process Skin: COMMON NORMALS: no rashes or lesions noted, skin turgor normal, no j aundice, no petechiae and no mottling GENERAL SKIN EXAM: no rashes or lesions noted and turgor normal Course Vital Signs: Vital signs: Vital Signs Temperature 97.4 F L 05/30/19 22:53 Pulse Rate 68 05/30/19 22:53 Respiratory Rate 18 05/30/19 22:53 Blood Pressure 119/89 05/30/19 22:53 Pulse Oximetry 100 05/30/19 22:53 MDM - Dizziness MDM Narrative: Medical decision making narrative: The patient comes in with a hemoglobin that is as good as it has ever been. She has no further vaginal bleeding. I did review the case in full with Dr. Atkinson and he believes the patient can just be referred back to her doctor for benign positional vertigo. We will go ahead and follow through with this plan. I reviewed all this with the patient and she is in agreement. Lab Data: Attestation: I reviewed the patient's lab results. Labs: Lab Results 05/30/19 05/30/19 Range/Units 18:50 18:50 WBC 8.4 (4.0-10.0) 10^3/ uL RBC 3.96 L (4.1-5.3) 10^6/u L Hgb 11.2 L (11.5-15.3) g/dL Hct 35.2 L (37.0-47.0) % MCV 88.9 (81-99) fL MCH 28.3 (28.0-34.0) pg MCHC 31.8 (30.0-36.0) g/dL RDW 13.8 (12.1-15.1) % Plt Count 289 (130-400) 10^3/c mm MPV 9.1 (7.4-10.4) fL Neut % (Auto) 62.4 % Lymph % (Auto) 29.3 % Cross % (Auto) 4.4 % Eos % (Auto) 3.4 % Baso % (Auto) 0.1 % Neut # (Auto) 5.3 (1.8-7.7) 10^3/u L Lymph # (Auto) 2.5 (0.8-4.8) 10^3/u L Cross # (Auto) 0.4 (0.2-0.9) 10^3/u L Eos # (Auto) 0.3 (0.0-0.8) 10^3/u L Baso # (Auto) 0.0 (0.0-0.1) 10^3/u L Nucleated RBC % (a uto) 0 % Nucleated RBCs # 0.0 /100WBC Sodium 138 (136-145) mmol/L Potassium 4.5 (3.5-5.1) mmol/L Chloride 102 (98-107) mmol/L Carbon Dioxide 25 (22-29) mmol/L Anion Gap 15.5 (5-19) BUN 12 (6-20) mg/dL Creatinine 0.8 (0.5-0.9) mg/dL GFR Calculation 88.1 L (90-130) mL/min Glucose 96 (74-109) mg/dL Calcium 9.7 (8.6-10.0) mg/Dl Total Bilirubin 0.2 (0.15-1.2) mg/dL AST 23 (0-32) U/L ALT 26 (0-33) U/L Alkaline Phosphata se 67 (35-105) IU/L Total Protein 7.2 (6.6-8.7) g/dL Albumin 4.6 (3.5-5.2) g/dL Globulin 2.6 (1.3-4.6) g/dL Discharge Plan Discharge Patient Disposition: Home, Self-Care Clinical Impression: Benign paroxysmal positional vertigo Qualifiers: Laterality: unspecified laterality Qualified Code(s): H81.10 - Benign paroxysmal vertigo, unspecified ear Condition: Stable Prescriptions: New meclizine 25 mg tablet 25 mg PO DAILY PRN (Reason: dizziness) Qty: 20 RF: 0 No Action ranitidine HCl [Zantac] 150 mg Tablet 150 mg PO BID RF: 0 PNV cmb#95-ferrous fumarate-FA [] 28 mg iron- 800 mcg Tablet 1 tab PO DAILY RF: 0 hydrocodone-acetaminophen 5-325 mg Tablet 1 - 2 tab PO Q6H PRN (Reason: Moderate To Severe Pain) Qty: 20 RF: 0 ibuprofen 800 mg Tablet 800 mg PO TID PRN (Reason: pain) Qty: 30 RF: 0 ferrous sulfate 325 mg (65 mg iron) tablet 325 mg PO BID Qty: 60 RF: 1 Discharge Orders: Discharge Order (Routine); Ordered 05/30/19 Ordered By: Aidee Michaud Referrals: Ester Noyola DO [Primary Care Provider] - Bernard Newsome MD [Physician] - 1-3 days Discharge Diet: Advance as tolerated Discharge Activity: Increase activity as tolerated Patient Instructions: Benign Paroxysmal Positional Vertigo (ED), Lightheadedness (ED), Dizziness (ED) Activity Restrictions/Additional Instructions: Please return to the ER immediately for any of the signs or symptoms listed on your discharge instruction sheets, worsening/changing of your symptoms, you are not getting better as quickly as expected, or for ANY other cause or concerns. Keep your appointment with Dr. Atkinson as well for recheck from your recent miscarriage. Discharge Date/Time: 05/30/19 22:58 Coding Level of Care Code ED [employer] Service Supervisor for Chg Fwd Exam Problem Focused The documentation recorded by the Kian huitron Carmen, accurately reflects the service I personally performed and the decisions made by , Aidee Michaud May 30, 2019 18:12
[2019-05-30] MEDS: ondansetron 2 mg/ML SDV 2 mL 4 MG IVP (21:09)
[2019-05-30] MEDS: meclizine 25 mg tablet PO (21:09)
[2019-05-30] MEDS: sodium chloride 0.9% 1,000 ML 999 ML IV (21:10)
[2019-05-30 21:24] VITALS: BP 120/83; BP 121/89; BP 131/86; PULSE 70; PULSE 85
[2019-05-30] MEDS: HYDROcodone-acetaminophen 5-325 mg Tablet 1 TAB PO (22:03)
[2019-05-30 22:53] VITALS: BP 119/89; PULSE 68; RESP 18; TEMP 36.3; O2SAT 100
== END 2019-05-30 22:58 | disposition home or self-care (01) ==
PROVIDERS: Emergency Medicine; Emergency Provider Emergency Medicine; Family Provider Family Medicine; PCP Family Medicine
DX: H81.10 Benign paroxysmal vertigo, unspecified ear (principal)
CPT/HCPCS: 36415; 80053; 85025; 96360; 96374; 99282; J2405; J7030; J8597

== ENCOUNTER → 2019-10-06 09:30 | Outpatient (BNVA) | payer OTHER, MEDICAID, SELFPAY | PROVIDERS: Family Provider Family Medicine; PCP Family Medicine; Visit Provider Obstetrics & Gynecology | DX: Z12.4 Encounter for screening for malignant neoplasm of cervix (principal); Z01.419 Encounter for gynecological examination (general) (routine) without abnormal findings; Z30.09 Encounter for other general counseling and advice on contraception | CPT/HCPCS: 88175 ==

== ENCOUNTER 2019-12-13 15:18 | Emergency (ER) | payer OTHER, MEDICAID, SELFPAY ==
[2019-12-13 15:43] VITALS: BP 139/84; PULSE 92; RESP 16; TEMP 37; O2SAT 98; BMI 36.1
--- NOTE | 2019-12-13 16:45 | W.ED.GENADLT ---
Documented by User: Doug De La Vega DO 12/14/19 06:06 HPI - General Adult General: Chief complaint: General Medical Stated complaint: weak, dizzy Time Seen by Provider: 12/13/19 16:22 History of Present Illness: HPI narrative: 24-year-old female comes in complaining of feeling weak and tired and having headache last several days she started another period last couple of months has had 2 periods of months bleeding is been somewhat heavy she has been feeling really wore out and tired she likens it to when she had a miscarriage although she does not think she is at this time. She went to take a shower and she felt even weaker and worse she got out of the shower and lay down when she got up again she had more symptoms she is not had any cough fever sweats or chills she not have any nausea vomiting or diarrhea. She had usual intake and output recently. No changes in medications no exposure that she knows of anybody who has COVID she is not really had any respiratory symptoms. Onset (ago): day(s) Radiation: non-radiation Severity: mild Pain Consistency: intermittent Relieving factors: none Exacerbating factors: none Associated symptoms: Reports no associated symptoms; Deny chest pain, dyspnea, malaise, nausea, rash or vomiting Treatments prior to arrival: none Review of Systems Const: Denies: fever(s), chills, body aches, change in appetite, fatigue or malaise ENMT: Denies: throat pain, ear or mastoid pain, nasal discharge or nasal congestion Card: Denies: chest pain, edema, dyspnea on exertion or orthopnea Resp: Denies: dyspnea, productive cough or non-productive cough GI: Denies: abdominal pain, nausea, vomiting, hematemesis, coffee ground emesis, diarrhea, constipation, bloating, hematochezia or melena : Denies: flank pain, difficulty voiding, dysuria, urinary frequency or urinary urgency Skin/Breast: Denies: rash or pruritus PFSH ED PFSH: Medical History Heartburn Surgical History History of dilation and curettage (05/23/19) Incomplete with hemorrhage. Performed by Dr. Jaziel Atkinson at [facility] in [place], [place] History of hip surgery (~2011) Arthroscopic repair of labrium tear. Age 17. Performed in [place], [place] Hx of tonsillectomy (~2009) Family History Father Diabetes Heart disease Social History Smoking and tobacco status: never smoked Alcohol intake: current Alcohol intake frequency: holidays/special occasions only Substance/Drug Use: current Substance/Drug use type: Marijuana Female Reproductive History: Date of last menstrual period: 12/13/19 Physical Exam Const: COMMON NORMALS: no acute distress GENERAL APPEARANCE: cooperative and comfortable ORIENTATION/CONSCIOUSNESS: Yes awake, Yes oriented to person, Yes oriented to place and Yes oriented to time HENMT: COMMON NORMALS: normocephalic HEAD & SCALP: normocephalic Eye: COMMON NORMALS: Equal, round and reactive pupils present, EOMs intact bilaterally, conjunctivae normal and no scleral icterus CONJUNCTIVA: Yes conjunctivae normal PUPIL: Yes Equal, round and reactive pupils present Neck/C-Spine: COMMON NORMALS: full ROM, no lymphadenopathy, supple and no JVD Lymph: LYMPHATIC: no lymphadenopathy noted and no lymphedema noted Resp: COMMON NORMALS: normal respiratory effort, No retractions, No use of accessory muscles and clear to auscultation bilaterally AUSCULTATION: clear to auscultation bilaterally Cardio: COMMON NORMALS: no JVD, regular rate, regular rhythm and No murmurs present (Cardio) RATE: regular rate RHYTHM: regular rhythm GI: COMMON NORMALS: Soft to palpation and No hepatosplenomegaly present AUSCULTATION: Yes normoactive bowel sounds PALPATION: Yes Soft to palpation, No Tenderness to palpation present (GI), No Guarding due to palpation present (GI) and Yes No hepatosplenomegaly present Extremity: COMMON NORMALS: normal to inspection, capillary refill normal, no clubbing, cyanosis or edema, no calf tenderness and no pedal edema Neuro: SENSORIUM/ORIENTATION: Yes oriented to person, Yes oriented to place and Yes oriented to time Skin: COMMON NORMALS: no rashes or lesions noted GENERAL SKIN EXAM: no rashes or lesions noted Course Vital Signs: Vital signs: Vital Signs Temperature 98.6 F 12/13/19 15:43 Pulse Rate 78 12/13/19 19:12 Respiratory Rate 16 12/13/19 19:12 Blood Pressure 126/77 12/13/19 19:12 Pulse Oximetry 98 12/13/19 19:12 MDM - General Adult MDM Narrative: Medical decision making narrative: Patient improved after fluids reviewed labs UA shows mostly blood due to her. No signs of infection. Toradol did help the pelvic cramping. She is [place] been seeing Dr. Atkinson for the irregular periods and menorrhagia have her continue to follow-up with him diclofenac to use PRN. If has worsening symptoms return to the emergency room Lab Data: Labs: Lab Results 12/13/19 12/13/19 12/13/19 Range/Units 16:56 16:56 17:31 WBC 10.2 H (4.0-10.0) 10^3/ uL RBC 4.69 (4.1-5.3) 10^6/u L Hgb 13.3 (11.5-15.3) g/dL Hct 42.2 (37.0-47.0) % MCV 90.0 (81-99) fL MCH 28.4 (28.0-34.0) pg MCHC 31.5 (30.0-36.0) g/dL RDW 13.3 (12.1-15.1) % Plt Count 270 (130-400) 10^3/c mm MPV 10.0 (7.4-10.4) fL Neut % (Auto) 77.2 % Lymph % (Auto) 16.1 % [place] % (Auto) 4.9 % Eos % (Auto) 1.0 % Baso % (Auto) 0.4 % Neut # (Auto) 7.91 H (1.8-7.7) 10^3/u L Lymph # (Auto) 1.7 (0.8-4.8) 10^3/u L [place] # (Auto) 0.5 (0.2-0.9) 10^3/u L Eos # (Auto) 0.1 (0.0-0.8) 10^3/u L Baso # (Auto) 0.0 (0.0-0.1) 10^3/u L Nucleated RBC % (a uto) 0 % Nucleated RBCs # 0.0 /100WBC Sodium 138 (136-145) mmol/L Potassium 4.3 (3.5-5.1) mmol/L Chloride 102 (98-107) mmol/L Carbon Dioxide 25 (22-29) mmol/L Anion Gap 15.3 (5-19) BUN 10 (6-20) mg/dL Creatinine 0.8 (0.5-0.9) mg/dL GFR Calculation 88.1 L (90-130) mL/min Glucose 103 (65-115) mg/dL Calculated Osmolal ity 282 L (285-295) mOsm/k g Calcium 10.1 (8.5-10.5) mg/dL Total Bilirubin 0.2 (0.15-1.2) mg/dL AST 15 (0-32) U/L ALT 14 (0-33) U/L Alkaline Phosphata se 74 (35-105) IU/L Creatine Kinase 131 (26-192) U/L Total Protein 7.6 (6.6-8.7) g/dL Albumin 4.8 (3.5-5.2) g/dL Globulin 2.8 (1.3-4.6) g/dL HCG, Qual Negative (Negative) Urine Color (Yellow) Urine Appearance (CLEAR) Urine pH (5-7) Ur Specific Gravit y (1.005-1.030) Urine Protein (Negative) Urine Glucose (UA) (Normal) Urine Ketones (Negative) Urine Blood (Negative) Urine Nitrate (Negative) Urine Bilirubin (NEGATIVE) Urine Urobilinogen (Negative) mg/dL Ur Leukocyte Blessing ase (Negative) Urine RBC (0-2) /hpf Urine WBC (0-5) /hpf Ur Squamous Epith Cells (0-5) Amorphous Sediment Urine Bacteria (NONE) 12/13/19 Range/Units 17:31 WBC (4.0-10.0) 10^3/ uL RBC (4.1-5.3) 10^6/u L Hgb (11.5-15.3) g/dL Hct (37.0-47.0) % MCV (81-99) fL MCH (28.0-34.0) pg MCHC (30.0-36.0) g/dL RDW (12.1-15.1) % Plt Count (130-400) 10^3/c mm MPV (7.4-10.4) fL Neut % (Auto) % Lymph % (Auto) % [place] % (Auto) % Eos % (Auto) % Baso % (Auto) % Neut # (Auto) (1.8-7.7) 10^3/u L Lymph # (Auto) (0.8-4.8) 10^3/u L [place] # (Auto) (0.2-0.9) 10^3/u L Eos # (Auto) (0.0-0.8) 10^3/u L Baso # (Auto) (0.0-0.1) 10^3/u L Nucleated RBC % (a uto) % Nucleated RBCs # /100WBC Sodium (136-145) mmol/L Potassium (3.5-5.1) mmol/L Chloride (98-107) mmol/L Carbon Dioxide (22-29) mmol/L Anion Gap (5-19) BUN (6-20) mg/dL Creatinine (0.5-0.9) mg/dL GFR Calculation (90-130) mL/min Glucose (65-115) mg/dL Calculated Osmolal ity (285-295) mOsm/k g Calcium (8.5-10.5) mg/dL Total Bilirubin (0.15-1.2) mg/dL AST (0-32) U/L ALT (0-33) U/L Alkaline Phosphata se (35-105) IU/L Creatine Kinase (26-192) U/L Total Protein (6.6-8.7) g/dL Albumin (3.5-5.2) g/dL Globulin (1.3-4.6) g/dL HCG, Qual (Negative) Urine Color Yellow (Yellow) Urine Appearance Clear (CLEAR) Urine pH 6 (5-7) Ur Specific Gravit y 1.015 (1.005-1.030) Urine Protein Neg (Negative) Urine Glucose (UA) Norm (Normal) Urine Ketones Negative (Negative) Urine Blood 3+ H (Negative) Urine Nitrate Negative (Negative) Urine Bilirubin Neg (NEGATIVE) Urine Urobilinogen Norm (Negative) mg/dL Ur Leukocyte Blessing ase Negative (Negative) Urine RBC 40-50 H (0-2) /hpf Urine WBC None (0-5) /hpf Ur Squamous Epith Cells 0-4 H (0-5) Amorphous Sediment Not Reportable Urine Bacteria Trace (NONE) Discharge Plan Discharge Patient Disposition: Home Clinical Impression: Postural dizziness with near syncope, Menorrhagia Condition: Stable Prescriptions: New diclofenac sodium 75 mg tablet,delayed release (DR/EC) 75 mg PO Q12H PRN (Reason: pain) Qty: 20 RF: 0 No Action famotidine 20 mg tablet 20 mg PO DAILY RF: 0 Discharge Orders: Discharge Order (Routine); Ordered 12/13/19 Ordered By: Julissa Orr Referrals: Ester Noyola DO [Primary Care Provider] - 1-3 days Discharge Diet: Advance as tolerated Discharge Activity: Resume usual activity Patient Instructions: Menorrhagia (ED) Activity Restrictions/Additional Instructions: Follow-up follow-up with Dr. Atkinson on the abnormal periods. Drink plenty of fluids rest return if has worsening problems. Discharge Date/Time: 12/13/19 19:12 Coding Level of Care Code ED [employer] for Chg Fwd Exam Comprehensive Documented by User: Julissa Orr MD 12/14/19 21:00 HPI - General Adult General: Chief complaint: General Medical Stated complaint: weak, dizzy Time Seen by Provider: 12/13/19 16:22 PFS ED PFSH: Medical History Heartburn Surgical History History of dilation and curettage (05/23/19) Incomplete with hemorrhage. Performed by Dr. Jaziel Atkinson at [facility] in [place], [place] History of hip surgery (~2011) Arthroscopic repair of labrium tear. Age 17. Performed in [place], [place] Hx of tonsillectomy (~2009) Family History Father Diabetes Heart disease Social History Smoking and tobacco status: never smoked Alcohol intake: current Alcohol intake frequency: holidays/special occasions only Substance/Drug Use: current Substance/Drug use type: Marijuana Course Vital Signs: Vital signs: Vital Signs Temperature 98.6 F 12/13/19 15:43 Pulse Rate 78 12/13/19 19:12 Respiratory Rate 16 12/13/19 19:12 Blood Pressure 126/77 12/13/19 19:12 Pulse Oximetry 98 12/13/19 19:12 [facility] - General Adult Lab Data: Labs: Lab Results 12/13/19 12/13/19 12/13/19 Range/Units 16:56 16:56 17:31 WBC 10.2 H (4.0-10.0) 10^3/ uL RBC 4.69 (4.1-5.3) 10^6/u L Hgb 13.3 (11.5-15.3) g/dL Hct 42.2 (37.0-47.0) % MCV 90.0 (81-99) fL MCH 28.4 (28.0-34.0) pg MCHC 31.5 (30.0-36.0) g/dL RDW 13.3 (12.1-15.1) % Plt Count 270 (130-400) 10^3/c mm MPV 10.0 (7.4-10.4) fL Neut % (Auto) 77.2 % Lymph % (Auto) 16.1 % [place] % (Auto) 4.9 % Eos % (Auto) 1.0 % Baso % (Auto) 0.4 % Neut # (Auto) 7.91 H (1.8-7.7) 10^3/u L Lymph # (Auto) 1.7 (0.8-4.8) 10^3/u L [place] # (Auto) 0.5 (0.2-0.9) 10^3/u L Eos # (Auto) 0.1 (0.0-0.8) 10^3/u L Baso # (Auto) 0.0 (0.0-0.1) 10^3/u L Nucleated RBC % (a uto) 0 % Nucleated RBCs # 0.0 /100WBC Sodium 138 (136-145) mmol/L Potassium 4.3 (3.5-5.1) mmol/L Chloride 102 (98-107) mmol/L Carbon Dioxide 25 (22-29) mmol/L Anion Gap 15.3 (5-19) BUN 10 (6-20) mg/dL Creatinine 0.8 (0.5-0.9) mg/dL GFR Calculation 88.1 L (90-130) mL/min Glucose 103 (65-115) mg/dL Calculated Osmolal ity 282 L (285-295) mOsm/k g Calcium 10.1 (8.5-10.5) mg/dL Total Bilirubin 0.2 (0.15-1.2) mg/dL AST 15 (0-32) U/L ALT 14 (0-33) U/L Alkaline Phosphata se 74 (35-105) IU/L Creatine Kinase 131 (26-192) U/L Total Protein 7.6 (6.6-8.7) g/dL Albumin 4.8 (3.5-5.2) g/dL Globulin 2.8 (1.3-4.6) g/dL HCG, Qual Negative (Negative) Urine Color (Yellow) Urine Appearance (CLEAR) Urine pH (5-7) Ur Specific Gravit y (1.005-1.030) Urine Protein (Negative) Urine Glucose (UA) (Normal) Urine Ketones (Negative) Urine Blood (Negative) Urine Nitrate (Negative) Urine Bilirubin (NEGATIVE) Urine Urobilinogen (Negative) mg/dL Ur Leukocyte Blessing ase (Negative) Urine RBC (0-2) /hpf Urine WBC (0-5) /hpf Ur Squamous Epith Cells (0-5) Amorphous Sediment Urine Bacteria (NONE) 12/13/19 Range/Units 17:31 WBC (4.0-10.0) 10^3/ uL RBC (4.1-5.3) 10^6/u L Hgb (11.5-15.3) g/dL Hct (37.0-47.0) % MCV (81-99) fL MCH (28.0-34.0) pg MCHC (30.0-36.0) g/dL RDW (12.1-15.1) % Plt Count (130-400) 10^3/c mm MPV (7.4-10.4) fL Neut % (Auto) % Lymph % (Auto) % [place] % (Auto) % Eos % (Auto) % Baso % (Auto) % Neut # (Auto) (1.8-7.7) 10^3/u L Lymph # (Auto) (0.8-4.8) 10^3/u L [place] # (Auto) (0.2-0.9) 10^3/u L Eos # (Auto) (0.0-0.8) 10^3/u L Baso # (Auto) (0.0-0.1) 10^3/u L Nucleated RBC % (a uto) % Nucleated RBCs # /100WBC Sodium (136-145) mmol/L Potassium (3.5-5.1) mmol/L Chloride (98-107) mmol/L Carbon Dioxide (22-29) mmol/L Anion Gap (5-19) BUN (6-20) mg/dL Creatinine (0.5-0.9) mg/dL GFR Calculation (90-130) mL/min Glucose (65-115) mg/dL Calculated Osmolal ity (285-295) mOsm/k g Calcium (8.5-10.5) mg/dL Total Bilirubin (0.15-1.2) mg/dL AST (0-32) U/L ALT (0-33) U/L Alkaline Phosphata se (35-105) IU/L Creatine Kinase (26-192) U/L Total Protein (6.6-8.7) g/dL Albumin (3.5-5.2) g/dL Globulin (1.3-4.6) g/dL HCG, Qual (Negative) Urine Color Yellow (Yellow) Urine Appearance Clear (CLEAR) Urine pH 6 (5-7) Ur Specific Gravit y 1.015 (1.005-1.030) Urine Protein Neg (Negative) Urine Glucose (UA) Norm (Normal) Urine Ketones Negative (Negative) Urine Blood 3+ H (Negative) Urine Nitrate Negative (Negative) Urine Bilirubin Neg (NEGATIVE) Urine Urobilinogen Norm (Negative) mg/dL Ur Leukocyte Blessing ase Negative (Negative) Urine RBC 40-50 H (0-2) /hpf Urine WBC None (0-5) /hpf Ur Squamous Epith Cells 0-4 H (0-5) Amorphous Sediment Not Reportable Urine Bacteria Trace (NONE) Discharge Plan Discharge Patient Disposition: Home Clinical Impression: Postural dizziness with near syncope, Menorrhagia Condition: Stable Prescriptions: New diclofenac sodium 75 mg tablet,delayed release (DR/EC) 75 mg PO Q12H PRN (Reason: pain) Qty: 20 RF: 0 No Action famotidine 20 mg tablet 20 mg PO DAILY RF: 0 Discharge Orders: Discharge Order (Routine); Ordered 12/13/19 Ordered By: Julissa Orr Referrals: Ester Noyola DO [Primary Care Provider] - 1-3 days Discharge Diet: Advance as tolerated Discharge Activity: Resume usual activity Patient Instructions: Menorrhagia (ED) Activity Restrictions/Additional Instructions: Follow-up follow-up with Dr. Atkinson on the abnormal periods. Drink plenty of fluids rest return if has worsening problems. Discharge Date/Time: 12/13/19 19:12 Coding Level of Care Code ED [employer] for Chg Fwd Exam Comprehensive
[2019-12-13 17:09] LABS: Basophils % 0.4 %; Eosinophils # 0.1 10^3/uL (0.0-0.8); Hematocrit 42.2 % (37.0-47.0); Hemoglobin 13.3 g/dL (11.5-15.3); Lymphocytes # 1.7 10^3/uL (0.8-4.8); Lymphocytes % 16.1 %; Mean Corpuscular HGB Conc 31.5 g/dL (30.0-36.0); Mean Corpuscular Hemoglobin 28.4 pg (28.0-34.0); Monocytes # 0.5 10^3/uL (0.2-0.9); Monocytes % 4.9 %; Neutrophils # 7.91 10^3/uL (1.8-7.7); Neutrophils % 77.2 %; Nucleated Red Blood Cells % 0 %; Platelet Count 270 10^3/cmm (130-400); Red Blood Count 4.69 10^6/uL (4.1-5.3); Red Cell Distribution Width 13.3 % (12.1-15.1); White Blood Count 10.2 10^3/uL (4.0-10.0)
[2019-12-13 17:23] LABS: Alanine Aminotransferase 14 U/L (0-33); Albumin Level 4.8 g/dL (3.5-5.2); Alkaline Phosphatase 74 IU/L (35-105); Anion Gap 15.3 (5-19); Aspartate Amino Transferase 15 U/L (0-32); Blood Urea Nitrogen 10 mg/dL (6-20); Calcium 10.1 mg/dL (8.5-10.5); Carbon Dioxide 25 mmol/L (22-29); Chloride 102 mmol/L (98-107); Creatine Phosphokinase 131 U/L (26-192); Globulin 2.8 g/dL (1.3-4.6); Glomerular Filtration Rate 88.1 mL/min (90-130); Glucose 103 mg/dL (65-115); Osmolality Calculated 282 mOsm/kg (285-295); Potassium 4.3 mmol/L (3.5-5.1); Sodium 138 mmol/L (136-145); Total Bilirubin 0.2 mg/dL (0.15-1.2); Total Protein 7.6 g/dL (6.6-8.7)
[2019-12-13 17:30] VITALS: BP 124/82; BP 132/76; PULSE 78; PULSE 79
[2019-12-13] MEDS: sodium chloride 0.9% 1,000 ML 999 ML IV (17:39)
[2019-12-13 17:47] LABS: Add Urine Microscopic? YES; Bilirubin Urine Neg (NEGATIVE); Blood Urine 3+ (Negative); Glucose Urine UA Norm (Normal); Ketones Urine Negative (Negative); Leukocyte Esterase Urine Negative (Negative); Nitrate Urine Negative (Negative); Protein Urine Neg (Negative); Specific Gravity, Urine 1.015 (1.005-1.030); Urine Appearance Clear (CLEAR); Urine Color Yellow (Yellow); Urobilinogen Urine Norm (Negative); pH Urine 6 (5-7)
[2019-12-13 18:10] LABS: HCG Qualitative Urine. Negative (Negative)
[2019-12-13 18:31] LABS: Add Urine Culture? Yes; Bacteria Urine TRACE; RBC Urine 40-50 /hpf (0-2); Squamous Epithelial Cell Urine 0-4 (0-5)
[2019-12-13] MEDS: ketorolac 30 mg/mL INJ IVP (18:32)
[2019-12-13 19:12] VITALS: BP 126/77; PULSE 78; RESP 16; O2SAT 98
== END 2019-12-13 19:12 | disposition home or self-care (01) ==
PROVIDERS: Emergency Provider Family Medicine; PCP Family Medicine
DX: R42 Dizziness and giddiness (principal); R55 Syncope and collapse; N92.0 Excessive and frequent menstruation with regular cycle
CPT/HCPCS: 12345; 36415; 80053; 81001; 81003; 81025; 82550; 85025; 87086; 96361; 96374; 96375; 99283; 99284; J1885; J7030

== ENCOUNTER → 2020-02-24 14:42 | Outpatient (BNVA) | payer OTHER, MEDICAID, SELFPAY | PROVIDERS: PCP Family Medicine; Visit Provider Nurse Practitioner Family | DX: Z11.59 Encounter for screening for other viral diseases (principal) | CPT/HCPCS: 87635 ==

== ENCOUNTER → 2020-03-29 08:54 | Outpatient (BNVA) | payer OTHER, MEDICAID, SELFPAY | PROVIDERS: PCP Family Medicine; Visit Provider Internal Medicine | DX: M25.50 Pain in unspecified joint (principal); D86.9 Sarcoidosis, unspecified; L40.9 Psoriasis, unspecified; Z79.899 Other long term (current) drug therapy; Z11.59 Encounter for screening for other viral diseases; R53.83 Other fatigue; R21 Rash and other nonspecific skin eruption | CPT/HCPCS: 36415; 99204 ==

== ENCOUNTER 2020-03-29 09:41 | Outpatient (CLI) | payer OTHER, MEDICAID, SELFPAY ==
--- NOTE | 2020-03-29 09:47 | XR_ITS ---
WS: [id number] Left foot, 3 views, 03/29/2020 Clinical Data: M25.50 - Pain in unspecified joint Comparison: None. Findings: No fractures or dislocations are seen. No bone destruction or erosion is noted. The joint spaces and soft tissues are normal. There is a bunion at the head of the left first metatarsal. No periarticular demineralization or calc ifications are seen. XR/XR foot LT min 3V* [id number] Impression: Negative left foot.
--- NOTE | 2020-03-29 09:47 | XR_ITS ---
WS: [id number] Right hand, 2 views, 03/29/2020 Clinical Data: M25.50 - Pain in unspecified joint Comparison: Right hand 01/13/2019. Findings: No fractures or dislocations are seen. The soft tissues are unremarkable. The joint space s are normal No periarticular demineralization or calcification is seen. XR/XR hand RT 2V [id number] Impression: Negative right hand.
--- NOTE | 2020-03-29 09:47 | XR_ITS ---
WS: [id number] Sacroiliac joints, 3 views, 03/29/2020 Clinical Data: L40.9 - Psoriasis, unspecified Comparison: None. Findings: The SI joints are normal in width. No erosion, sclerosis or destruction is seen. There are no fractur es or dislocations. The adjacent visualized pelvis and hips are unremarkable. XR/XR sacroiliac jts m 3V [id number] Impression: Negative SI joints.
--- NOTE | 2020-03-29 09:47 | XR_ITS ---
WS: [id number] Right foot, 3 views, 03/29/2020 Clinical Data: M25.50 - Pain in unspecified joint Comparison: None. Findings: No fractures or dislocations are seen. No bone destruction or erosion is noted. The joint spaces and soft tissues are normal. There is a bunion at the head of the right first metatarsal. No periarticular demineralization or aliyah cifications are seen. XR/XR foot RT min 3V* [id number] Impression: 1. Negative for changes of inflammatory arthritis. 2. Bunion at head of right first metatarsal.
--- NOTE | 2020-03-29 09:47 | XR_ITS ---
WS: [id number] Left hand, 2 views, 03/29/2020 Clinical Data: M25.50 - Pain in unspecified joint Comparison: Left hand, 01/13/2019. Findings: No fractures or dislocations are seen. The soft tissues are unremarkable. The joint spaces are normal No periarticular demineralization or calcifications are seen. XR/XR hand LT 2V [id number] Impression: Negative left hand.
== END 2020-03-29 09:42 | disposition home or self-care (01) ==
PROVIDERS: PCP Family Medicine; Visit Provider Internal Medicine
DX: M79.642 Pain in left hand (principal); M79.641 Pain in right hand; M79.672 Pain in left foot; M79.671 Pain in right foot; M53.3 Sacrococcygeal disorders, not elsewhere classified; M21.611 Bunion of right foot
CPT/HCPCS: 72202; 73120; 73630; 80053; 81003; 82024; 82306; 82533; 82550; 82728; 82784; 83516; 83540; 84100; 85025; 86704; 86803; 86812; 87340

== ENCOUNTER → 2020-04-12 09:52 | Outpatient (BNVA) | payer OTHER, MEDICAID, SELFPAY | PROVIDERS: PCP Family Medicine; Visit Provider Internal Medicine | DX: M25.50 Pain in unspecified joint (principal); R53.83 Other fatigue; Z79.899 Other long term (current) drug therapy; Z51.81 Encounter for therapeutic drug level monitoring; E55.9 Vitamin D deficiency, unspecified; D86.9 Sarcoidosis, unspecified; L40.9 Psoriasis, unspecified | CPT/HCPCS: 36415; 81003; 82550; 82607; 83735; 84100; 99214 ==

== ENCOUNTER → 2020-08-09 12:00 | Outpatient (BNVA) | payer OTHER, BC, MEDICAID, SELFPAY | PROVIDERS: PCP Family Medicine; Visit Provider Obstetrics & Gynecology | DX: Z20.2 Contact with and (suspected) exposure to infections with a predominantly sexual mode of transmission (principal) | CPT/HCPCS: 86592; 87491; 87591; 87661; 87806 ==

== ENCOUNTER 2020-09-24 15:21 | Outpatient (CLI) | payer OTHER, BC, MEDICAID, SELFPAY ==
[2020-09-24 16:25] LABS: Basophils % 0.3 %; Eosinophils # 0.1 10^3/uL (0.0-0.8); Eosinophils % 0.8 %; Hematocrit 42.9 % (37.0-47.0); Hemoglobin 13.8 g/dL (11.5-15.3); Lymphocytes # 2.2 10^3/uL (0.8-4.8); Lymphocytes % 23.1 %; Mean Corpuscular HGB Conc 32.2 g/dL (30.0-36.0); Mean Corpuscular Hemoglobin 30.1 pg (28.0-34.0); Mean Corpuscular Volume 93.7 fL (81-99); Mean Platelet Volume 9.6 fL (7.4-10.4); Monocytes # 0.6 10^3/uL (0.2-0.9); Monocytes % 5.9 %; Neutrophils # 6.69 10^3/uL (1.8-7.7); Neutrophils % 69.3 %; Nucleated Red Blood Cells % 0 %; Platelet Count 263 10^3/cmm (130-400); Red Blood Count 4.58 10^6/uL (4.1-5.3); Red Cell Distribution Width 12.6 % (12.1-15.1); White Blood Count 9.7 10^3/uL (4.0-10.0)
[2020-09-24 17:22] LABS: Alanine Aminotransferase 16 U/L (0-33); Albumin Level 4.8 g/dL (3.5-5.2); Alkaline Phosphatase 58 IU/L (35-105); Anion Gap 12.9 (5-19); Aspartate Amino Transferase 15 U/L (0-32); Blood Urea Nitrogen 10 mg/dL (6-20); C Reactive Protein 4.9 mg/L (0.0-4.9); Carbon Dioxide 27 mmol/L (22-29); Chloride 103 mmol/L (98-107); Globulin 2.2 g/dL (1.3-4.6); Glucose 82 mg/dL (65-115); Osmolality Calculated 286 mOsm/kg (285-295); Potassium 3.9 mmol/L (3.5-5.1); Sodium 139 mmol/L (136-145); Total Bilirubin 0.3 mg/dL (0.15-1.2)
[2020-09-24 17:50] LABS: Erythrocyte Sedimentation Rate 10 mm/hr (0-15)
== END 2020-09-24 15:22 | disposition home or self-care (01) ==
PROVIDERS: PCP Family Medicine; Visit Provider Internal Medicine
DX: M25.50 Pain in unspecified joint (principal); Z79.899 Other long term (current) drug therapy
CPT/HCPCS: 36415; 80053; 85025; 85651; 86140

== ENCOUNTER → 2020-09-30 14:28 | Outpatient (BNVA) | payer OTHER, BC, MEDICAID, SELFPAY | PROVIDERS: PCP Family Medicine; Visit Provider Internal Medicine | DX: M25.50 Pain in unspecified joint (principal); R53.83 Other fatigue; R21 Rash and other nonspecific skin eruption; E55.9 Vitamin D deficiency, unspecified | CPT/HCPCS: 99214 ==

== ENCOUNTER → 2020-11-11 09:12 | Outpatient (BNVA) | payer OTHER, BC, MEDICAID, SELFPAY | PROVIDERS: PCP Family Medicine; Referring Provider Family Medicine; Visit Provider Specialist | DX: G62.89 Other specified polyneuropathies (principal) | CPT/HCPCS: 95908 ==

== ENCOUNTER → 2020-12-30 13:20 | Outpatient (BNVA) | payer OTHER, BC, MEDICAID, SELFPAY | PROVIDERS: PCP Family Medicine; Visit Provider Internal Medicine | DX: M25.50 Pain in unspecified joint (principal); Z79.899 Other long term (current) drug therapy | CPT/HCPCS: 36415; 80053; 85025; 85651; 86140 ==

== ENCOUNTER → 2021-01-01 09:49 | Outpatient (BNVA) | payer OTHER, BC, MEDICAID, SELFPAY | PROVIDERS: PCP Family Medicine; Visit Provider Internal Medicine | DX: R21 Rash and other nonspecific skin eruption (principal); R53.83 Other fatigue; M25.50 Pain in unspecified joint; Z79.899 Other long term (current) drug therapy; E87.6 Hypokalemia; E53.8 Deficiency of other specified B group vitamins; E55.9 Vitamin D deficiency, unspecified | CPT/HCPCS: 36415; 99214 ==

== ENCOUNTER → 2021-01-09 19:22 | Outpatient (BNVA) | payer OTHER, BC, MEDICAID, SELFPAY | PROVIDERS: PCP Family Medicine; Visit Provider Nurse Practitioner | DX: S69.91XA Unspecified injury of right wrist, hand and finger(s), initial encounter (principal); X58.XXXA Exposure to other specified factors, initial encounter | CPT/HCPCS: 73110 ==

== ENCOUNTER → 2021-05-20 11:04 | Outpatient (BNVA) | payer OTHER, BC, MEDICAID, SELFPAY | PROVIDERS: PCP Family Medicine; Visit Provider Nurse Practitioner Family | DX: J45.909 Unspecified asthma, uncomplicated (principal); R06.02 Shortness of breath; Z20.822 Contact with and (suspected) exposure to COVID-19 | CPT/HCPCS: 87635 ==

== ENCOUNTER 2021-06-30 10:05 | Outpatient (CLI) | payer OTHER, BC, MEDICAID, SELFPAY ==
[2021-06-30 11:10] LABS: Alanine Aminotransferase 15 U/L (0-33); Albumin Level 4.7 g/dL (3.5-5.2); Alkaline Phosphatase 62 IU/L (35-105); Blood Urea Nitrogen 10 mg/dL (6-20); C Reactive Protein 4.5 mg/L (0.0-4.9); Calcium 9.4 mg/dL (8.5-10.5); Carbon Dioxide 21 mmol/L (22-29); Chloride 104 mmol/L (98-107); Glomerular Filtration Rate 120.8 mL/min (90-130); Glucose 85 mg/dL (65-115); Osmolality Calculated 280 mOsm/kg (285-295); Sodium 136 mmol/L (136-145); Total Bilirubin 0.2 mg/dL (0.15-1.2); Total Protein 7.7 g/dL (6.6-8.7)
[2021-06-30 11:13] LABS: Anion Gap 15.4 (5-19); Aspartate Amino Transferase 14 U/L (0-32); Potassium 4.4 mmol/L (3.5-5.1)
[2021-06-30 12:30] LABS: Basophils % 0.2 %; Eosinophils # 0.1 10^3/uL (0.0-0.8); Eosinophils % 1.2 %; Hematocrit 41.1 % (37.0-47.0); Hemoglobin 13.3 g/dL (11.5-15.3); Lymphocytes # 2.9 10^3/uL (0.8-4.8); Lymphocytes % 26.2 %; Mean Corpuscular HGB Conc 32.4 g/dL (30.0-36.0); Mean Corpuscular Volume 92.6 fl (81-99); Mean Platelet Volume 9.1 fL (7.4-10.4); Monocytes # 0.7 10^3/uL (0.2-0.9); Monocytes % 5.9 %; Neutrophils # 7.33 10^3/uL (1.8-7.7); Nucleated Red Blood Cells % 0 %; Platelet Count 277 10^3/cmm (130-400); Red Blood Count 4.44 10^6/uL (4.1-5.3); White Blood Count 11.1 10^3/uL (4.0-10.0)
[2021-06-30 13:30] LABS: Erythrocyte Sedimentation Rate 7 mm/hr (0-15)
== END 2021-06-30 10:06 | disposition home or self-care (01) ==
LOC: LAB 10:11
PROVIDERS: PCP Family Medicine; Visit Provider Internal Medicine
DX: M25.50 Pain in unspecified joint (principal); Z79.899 Other long term (current) drug therapy
CPT/HCPCS: 80053; 85025; 85651; 86140

== ENCOUNTER 2024-09-09 18:38 | Emergency (ER) | payer BC, MEDICAID, SELFPAY ==
[2024-09-09 18:47] VITALS: BP 109/51; PULSE 67; RESP 15; TEMP 37.3; O2SAT 100; BMI 36.9
--- NOTE | 2024-09-09 19:06 | XRR_ITS ---
PROCEDURE INFORMATION: Exam: XR Left Knee Exam date and time: 09/09/2024 7:14 PM Age: 29 years old Clinical indication: Injury or trauma; Fall; Swelling (edema); Lower leg; Left; Additional info: Lt lower ext pain/swelling post fall TECHNIQUE: Imaging protocol: Radiologic exam of the left knee. Views: 3 views. COMPARISON: CR (LOW EXM, ) 09/09/2024 7:08 PM FINDINGS: Bones/joints: No evidence of acute fracture or subluxation. No evidence of joint effusion. Soft tissues: No gross soft tissue abnormality. XR/XR knee LT 3V* [id number] IMPRESSION: 1. No evidence of fracture or subluxation.
--- NOTE | 2024-09-09 19:06 | XRR_ITS ---
PROCEDURE INFORMATION: Exam: XR Left Ankle Exam date and time: 09/09/2024 7:08 PM Age: 29 years old Clinical indication: Injury or trauma; Swelling (edema); Lower leg; Left; Lt lower ext pain/swelling post fall TECHNIQUE: Imaging protocol: Radiologic exam of the left ankle. Views: 3 or more views. COMPARISON: CR XR foot LT min 3V* [id number] 03/29/2020 9:52 AM FINDINGS: Bones/joints: Ankle mortise is intact without evidence of acute fracture or subluxation. Soft tissues: Prominent soft tissue edema overlying the lateral malleolus. XR/XR ankle LT min 3V* [id number] IMPRESSION: 1. Prominent soft tissue edema without evidence of acute fracture or subluxation. If there is ongoing clinical suspicion for traumatic injury, consider correlation with CT.
--- NOTE | 2024-09-09 19:20 | W.ED.EXTPRO ---
HPI - Extremity Problem General: Chief complaint: Extremity Injury, Lower Stated complaint: fall Left ankle to knee injury Time Seen by Provider: 09/09/24 18:40 History of Present Illness: The patient was playing some football with some friends this afternoon when she jumped to catch a ball and as she landed rolled her left ankle. Patient reports it felt like she felt 3 pops between her knee and ankle. Patient appears in moderate pain. Patient appears nontoxic. Lateral swelling is noted to the left ankle. Related Data Home Medications ?Medication ?Instructions ?Recorded ?Confirmed multivitamin 1 tab PO DAILY 08/09/20 06/25/21 omeprazole 20 mg capsule,delayed See Rx Instructions PO BID 08/09/20 06/25/21 release vitamin B complex (B 1 tab PO DAILY 08/09/20 06/25/21 Complex-Vitamin B12 tablet) citalopram 10 mg tablet 10 mg PO DAILY 09/30/20 06/25/21 diphenhydramine 25 1 tab PO Q6H PRN 01/01/21 06/25/21 mg-acetaminophen 500 mg tablet (Tylenol PM Extra Strength) trazodone 50 mg tablet 50 mg PO DAILY 01/01/21 06/25/21 Previous Rx's ?Medication ?Instructions ?Recorded cholecalciferol (vitamin D3) 1,250 50,000 unit PO .qweek #14 caps 04/12/20 mcg (50,000 unit) capsule triamcinolone acetonide 0.1 % 1 applic topical BID #80 grams 11/14/20 topical ointment diclofenac sodium 1 % topical gel 2 g topical QID #100 grams 12/09/20 magnesium 200 mg tablet 200 mg PO DAILY #30 tabs 01/01/21 mecobalamin (vitamin B12) 1,000 1,000 mcg PO DAILY #30 tabs 01/01/21 mcg chewable tablet potassium chloride 20 mEq 20 meq PO DAILY #7 tabs 01/01/21 tablet,extended release meloxicam 15 mg tablet 15 mg PO DAILY #30 tabs 01/17/21 cephalexin 500 mg capsule 500 mg PO TID 7 days #21 caps 02/20/21 ferrous sulfate 325 mg (65 mg 325 mg PO DAILY #30 tabs 03/25/21 iron) tablet (Feosol) albuterol sulfate 90 mcg/actuation 1 inh inhalation QID PRN shortness 05/20/21 aerosol inhaler of breath or wheezing #8.5 grams budesonide-formoterol HFA 160 2 puff inhalation BID #10.2 grams 05/20/21 mcg-4.5 mcg/actuation aerosol inhaler azithromycin 250 mg tablet See Rx Instructions PO .COMPLEX #6 06/25/21 tabs methylprednisolone 4 mg tablets in See Rx Instructions PO PER PKG DIR 06/25/21 a dose pack (Medrol (Juan)) #21 ea Allergies Allergy/AdvReac Type Severity Reaction Status Date / Time No Known Allergies Allergy Verified 06/25/21 11:44 Review of Systems General: Reports: 10 or more systems reviewed and unremarkable except in HPI and below Musc: Reports: extremity pain and extremity swelling PFSH ED PFSH: Medical History Anxiety and depression Diagnosed in 2020 and is on citalopram which helps her symptoms. This is managed by her primary care provider. Arthralgia Symptoms since the age of 20 and she takes meloxicam for this. Is currently undergoing evaluation for autoimmune disorder with Dr. Armijo in rheumatology Asthma Diagnosed as a child. Has an albuterol inhaler which she uses as needed usually a couple of times a year. Denies any hospitalizations or intubations for asthma. GERD (gastroesophageal reflux disease) Symptoms since 2018 and has been on omeprazole. Denies having an EGD in the past. No pertinent past medical history Denies diabetes, asthma, hypertension, seizures, DVT/PE PCP:Dr. Newsome Surgical History History of dilation and curettage (05/23/19) Incomplete with hemorrhage. Performed by Dr. Jaziel Atkinson at [facility] in [place], [place] History of hip surgery (~2011) Arthroscopic repair of labrium tear--left hip. Age 17. Performed in [place], [place] Hx of tonsillectomy (~2009) Family History Father Diabetes Heart disease Hypertension Stroke Denies family history of Colon cancer Ovarian cancer Hyperlipidemia Breast cancer Uterine cancer Thyroid condition Social History Smoking and tobacco/nicotine status: never used tobacco/nicotine Alcohol intake: current Alcohol intake frequency: holidays/special occasions only Substance/Drug Use: never Physical Exam Const: COMMON NORMALS: alert HENMT: COMMON NORMALS: normocephalic HEAD & SCALP: normocephalic Neck/C-Spine: COMMON NORMALS: full ROM Resp: COMMON NORMALS: normal respiratory effort Cardio: COMMON NORMALS: regular rate RATE: regular rate GI: COMMON NORMALS: Soft to palpation PALPATION: Yes Soft to palpation Back/Pelvis: COMMON NORMALS: thoracic and lumbar spine normal to inspection Extremity: LEFT LOWER EXTREMITY: Yes lower leg (Proximal tibial tenderness) and Yes ankle joint (Lateral swelling) Neuro: SENSORIUM/ORIENTATION: Yes alert Skin: COMMON NORMALS: turgor normal GENERAL SKIN EXAM: turgor normal Course Vital Signs: Vital signs: Vital Signs Temperature 99.2 F 09/09/24 18:47 Pulse Rate 67 09/09/24 18:47 Respiratory Rate 15 09/09/24 18:47 Blood Pressure 109/51 09/09/24 18:47 Pulse Oximetry 100 09/09/24 18:47 Oxygen Delivery Me thod Room Air 09/09/24 18:47 MDM - Extremity (Nontraumatic) Medical Decision Making Patient comes in today for evaluation of injury to the left ankle. On exam patient appears nontoxic. Patient appears no acute distress. Patient has lateral ankle swelling and tenderness. No obvious dislocation or deformity noted. Differential diagnosis includes fracture, sprain, dislocation, contusion. X-ray of the left ankle and the right knee noted no obvious fracture. Reviewed exam with patient with recommendations for treatment and follow-up. Patient reported understanding and agreed to plan. Lab Data Radiology Impressions Ankle X-Ray 09/09/24 19:06 IMPRESSION: 1. Prominent soft tissue edema without evidence of acute fracture or subluxation. If there is ongoing clinical suspicion for traumatic injury, consider correlation with CT. Knee X-Ray 09/09/24 19:06 IMPRESSION: 1. No evidence of fracture or subluxation. All radiology interpretation(s) finalized by discharge Discharge Plan Discharge Patient Disposition: Home Clinical Impression: Sprain of ankle Qualifiers: Encounter type: initial encounter Involved ligament of ankle: unspecified ligament Laterality: left Qualified Code(s): S93.402A - Sprain of unspecified ligament of left ankle, initial encounter Condition: Stable Prescriptions: No Action diphenhydramine-acetaminophen [Tylenol PM Extra Strength] 25-500 mg tablet 1 tab PO Q6H PRN trazodone 50 mg tablet 50 mg PO DAILY magnesium 200 mg tablet 200 mg PO DAILY Qty: 30 0RF mecobalamin (vitamin B12) 1,000 mcg tablet,chewable 1,000 mcg PO DAILY Qty: 30 0RF potassium chloride 20 mEq tablet extended release 20 meq PO DAILY Qty: 7 0RF triamcinolone acetonide 0.1 % ointment 1 applic topical BID Qty: 80 1RF Rx Instructions: Apply to affected areas twice daily as needed when rash is present methylprednisolone [Medrol (Juan)] 4 mg tablets,dose pack See Rx Instructions PO PER PKG DIR Qty: 21 0RF Rx Instructions: PO PER PKG DIR azithromycin 250 mg tablet See Rx Instructions PO .COMPLEX Qty: 6 0RF Rx Instructions: take 500 mg today (day 1), then 250 mg for 4 days (days 2-5) PO cholecalciferol (vitamin D3) 1,250 mcg (50,000 unit) capsule 50,000 unit PO .qweek Qty: 14 0RF citalopram 10 mg tablet 10 mg PO DAILY omeprazole 20 mg capsule,delayed release(DR/EC) See Rx Instructions PO BID Rx Instructions: Strength unknown PO twice a day; vitamin B complex [B Complex-Vitamin B12] Tablet 1 tab PO DAILY multivitamin Tablet 1 tab PO DAILY cephalexin 500 mg capsule 500 mg PO TID 7 Days Qty: 21 0RF albuterol sulfate 90 mcg/actuation HFA aerosol inhaler 1 inh inhalation QID PRN (Reason: shortness of breath or wheezing) Qty: 8.5 0RF budesonide-formoterol 160-4.5 mcg/actuation HFA aerosol inhaler 2 puff inhalation BID Qty: 10.2 0RF diclofenac sodium 1 % gel 2 g topical QID Qty: 100 2RF Rx Instructions: apply to single elbow, wrist or hand; for hand includes palm/fingers/back of hand meloxicam 15 mg tablet 15 mg PO DAILY Qty: 30 2RF ferrous sulfate [Feosol] 325 mg (65 mg iron) tablet 325 mg PO DAILY Qty: 30 2RF Discharge Orders: Discharge ED (Routine); Ordered 09/09/24 Ordered By: Gerhard Patel Discharge Diet: Usual diet Discharge Activity: Increase activity as tolerated Patient Instructions: Ankle Sprain (ED) Activity Restrictions/Additional Instructions: Use Darnell wrap, ice, and elevation to help with pain. Use acetaminophen and ibuprofen for further pain relief. Use crutches until he can bear weight comfortably. If you notice no improvement of pain within 7 days have a repeat image of the x-ray for repeat evaluation. Print Language: Uruguayan Coding Level of Care Code ED Commercial Portfolio Manager for Marcela Vitale
[2024-09-09] MEDS: HYDROcodone-acetaminophen 5-325 mg Tablet 1 TAB PO (19:23)
[2024-09-09] MEDS: ondansetron hcl ODT 4 mg Tab PO (19:23)
[2024-09-09 20:26] VITALS: BP 120/57; PULSE 77; O2SAT 96
== END 2024-09-09 20:27 | disposition home or self-care (01) ==
PROVIDERS: Emergency Provider Nurse Practitioner Family
DX: S93.402A Sprain of unspecified ligament of left ankle, initial encounter (principal); X58.XXXA Exposure to other specified factors, initial encounter
CPT/HCPCS: 73562; 73610; 99283; J9999; Q0162

== ENCOUNTER → 2024-09-15 16:37 | Outpatient (BNVA) | payer BC, MEDICAID, SELFPAY | PROVIDERS: Visit Provider Nurse Practitioner | DX: M25.572 Pain in left ankle and joints of left foot (principal) | CPT/HCPCS: 73610 ==

== ENCOUNTER 2025-03-07 08:07 | Emergency (ER) | payer BC, MEDICAID, SELFPAY ==
[2025-03-07 08:13] VITALS: BP 124/71; PULSE 73; RESP 17; TEMP 36.8; O2SAT 100; BMI 36.9
--- OUTSIDE RECORDS SUMMARY | 2025-03-07 08:22 | XMS_ITS | Clinical Summary ---
Author Organization [facility] Address [address] [place] [address] Phone Care Team Providers Care Neck Band Setter Name Role Phone Unavailable Primary Care Provider Unavailabl e Medications meloxicam (MOBIC) 7.5 mg tablet Take 7.5 mg by mouth daily. Active traZODone (DESYREL) 150 mg tablet Take 150 mg by mouth daily at bedtime. Active citalopram (CeleXA) 20 mg tablet Take 20 mg by mouth daily at bedtime. Active amantadine HCL (SYMMETREL) 100 mg Capsule Take 100 mg by mouth 2 times daily. Active omeprazole (PriLOSEC) 10 mg Capsule, Delayed Release(E.C.) Take 10 mg by mouth daily. 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 Gender Identity Not on file Sexual Orientation Not on file Last Filed Vital Signs Vital Sign Reading Time Taken Comments Blood Pressure 111/76 03/26/2021 10:51 AM ROCK LOADER Pulse 69 03/26/2021 10:51 AM ROCK LOADER Temperature - - Respiratory Rate - - Oxygen Saturation - - Inhaled Oxygen Concentration - - Weight 104.3 kg (230 lb) 03/26/2021 10:51 AM ROCK LOADER Height 175.3 cm (5' 9 ) 03/26/2021 10:51 AM ROCK LOADER Body Mass Index 33.97 03/26/2021 10:51 AM ROCK LOADER Plan of Treatment Health Maintenance Due Date Last Done Comments DTAP/TDAP/TD VACCINES (1 - Tdap) 2014 HEPATITIS B VACCINES (1 of 3 - 19+ 3-dose series) 01/2014 CERVICAL CANCER SCREENING 2016 HPV/Cotest (21-29) 2016 PAP SMEAR 2016 HPV VACCINES (1 - 3-dose SCDM series) 2022 INFLUENZA VACCINE (#1) 2024 HPV/Cotest (30-65) 2025 Insurance [facility] [place] [address]
[2025-03-07] MEDS: diphenhydrAMINE 50 mg/mL SDV 1mL IVP (08:25)
[2025-03-07 08:30] VITALS: BP 123/84; PULSE 87; O2SAT 98
--- NOTE | 2025-03-07 08:35 | W.ED.HA ---
HPI - Headache General: Chief Complaint: Headache Stated Complaint: ROMERO x4 days Time Seen by Provider: 03/07/25 08:17 History of Present Illness: 29-year-old female presents with a history of migraines. Complaining of migraine headache that she describes all over she states it is more intense than she usually had in the past but character is otherwise the same she has had photophobia along with nausea and vomiting. She has tried [id number] Tylenol and ibuprofen she has no prescription medications for her migraines. Patient reports getting 3-4 headaches per week and at least 4 times a month that causes her to change plans to accommodate for the headache symptoms. Associated symptoms: Deny chest pain, fever(s) or rash Related Data Home Medications ?Medication ?Instructions ?Recorded ?Confirmed omeprazole 20 mg capsule,delayed 20 mg PO BID 08/09/20 03/07/25 release acetaminophen 500 mg tablet 1,000 mg PO Q6H PRN Fever Or Pain 03/07/25 03/07/25 (Tylenol Extra Strength) famotidine 20 mg tablet 20 mg PO DAILY 03/07/25 03/07/25 ibuprofen 200 mg tablet (Advil) 800 mg PO Q6H PRN Fever Or Pain 03/07/25 03/07/25 Previous Rx's ?Medication ?Instructions ?Recorded Cam Boot #1 ea 09/15/24 promethazine 25 mg tablet 25 mg PO Q6H PRN nausea and 03/07/25 vomiting #20 tabs sumatriptan succinate 50 mg tablet See Rx Instructions PO .COMPLEX 03/07/25 #20 tabs Allergies Allergy/AdvReac Type Severity Reaction Status Date / Time No Known Allergies Allergy Verified 09/15/24 16:26 Review of Systems Const: Denies: fever(s) or chills Card: Denies: chest pain Resp: Denies: dyspnea GI: Denies: abdominal pain : Denies: dysuria, urinary frequency or urinary urgency Musc: Denies: neck pain or back pain Skin/Breast: Denies: rash PFSH ED PFSH: Medical History GERD (gastroesophageal reflux disease) Symptoms since 2018 and has been on omeprazole. Denies having an EGD in the past. Anxiety and depression Diagnosed in 2020 and is on citalopram which helps her symptoms. This is managed by her primary care provider. Asthma Diagnosed as a child. Has an albuterol inhaler which she uses as needed usually a couple of times a year. Denies any hospitalizations or intubations for asthma. No pertinent past medical history Denies diabetes, asthma, hypertension, seizures, DVT/PE PCP:Dr. Newsome Arthralgia Symptoms since the age of 20 and she takes meloxicam for this. Is currently undergoing evaluation for autoimmune disorder with Dr. Armijo in rheumatology Surgical History History of dilation and curettage (05/23/19) Incomplete with hemorrhage. Performed by Dr. Jaziel Atkinson at [facility] in [place], [place] History of hip surgery (~2011) Arthroscopic repair of labrium tear--left hip. Age 17. Performed in [place], [place] Hx of tonsillectomy (~2009) Family History Father Diabetes Heart disease Hypertension Stroke Denies family history of Colon cancer Ovarian cancer Hyperlipidemia Breast cancer Uterine cancer Thyroid disease Social History Smoking and tobacco/nicotine status: never used tobacco/nicotine Alcohol intake: current Alcohol intake frequency: holidays/special occasions only Substance/Drug Use: never Physical Exam Const: GENERAL APPEARANCE: cooperative ORIENTATION/CONSCIOUSNESS: Yes awake, Yes oriented to person, Yes oriented to place and Yes oriented to time HENMT: COMMON NORMALS: normocephalic, atraumatic and hearing grossly normal bilaterally HEAD & SCALP: normocephalic and atraumatic Eye: OTHER: No meningeal signs no nuchal rigidity Resp: COMMON NORMALS: normal respiratory effort, No retractions, No use of accessory muscles and clear to auscultation bilaterally AUSCULTATION: clear to auscultation bilaterally Cardio: COMMON NORMALS: regular rate, regular rhythm and No murmurs present (Cardio) RATE: regular rate RHYTHM: regular rhythm GI: COMMON NORMALS: Soft to palpation and No hepatosplenomegaly present AUSCULTATION: Yes normoactive bowel sounds PALPATION: Yes Soft to palpation, No Tenderness to palpation present (GI), No Guarding due to palpation present (GI) and Yes No hepatosplenomegaly present Extremity: COMMON NORMALS: normal to inspection, capillary refill normal, no clubbing, cyanosis or edema, no calf tenderness and no pedal edema Neuro: SENSORIUM/ORIENTATION: Yes oriented to person, Yes oriented to place and Yes oriented to time OTHER: Neurologically intact no focal neurologic deficits noted Skin: COMMON NORMALS: no rashes or lesions noted GENERAL SKIN EXAM: no rashes or lesions noted Course Vital Signs: Vital signs: Vital Signs Temperature 98.3 F 03/07/25 08:13 Pulse Rate 76 03/07/25 11:14 Respiratory Rate 17 03/07/25 08:13 Blood Pressure 115/70 03/07/25 11:14 Pulse Oximetry 100 03/07/25 11:14 Oxygen Delivery Me thod Room Air 03/07/25 09:15 MDM - Headache Medical Decision Making Patient initially seen and given headache medications. CT head to rule out intracranial injury masses tumors or bleeding. Differential diagnose includes intracranial hemorrhage migraine intracranial mass. CT head does not show any sign of intracranial hemorrhage. No acute intracranial findings. Symptoms improved after treatment for migraine. Will discharge patient home encouraged her to follow-up with her primary care doctor she reports getting headaches frequently enough would likely be beneficial for her to be on some kind of migraine prophylaxis. Medical Records I reviewed the patient's medical records. Lab Data Radiology Impressions Head CT 03/07/25 09:37 IMPRESSION: 1. No evidence of intracranial hemorrhage or mass effect. 2. Cerebellar tonsillar ectopia unchanged since 2011. Normal fourth ventricle. No hydrocephalus. 3. No acute intracranial findings. All radiology interpretation(s) finalized by discharge Discharge Plan Discharge Patient Disposition: Home Clinical Impression: Migraine Condition: Stable Prescriptions: New sumatriptan succinate 50 mg tablet See Rx Instructions .ROUTE .COMPLEX Qty: 20 0RF Rx Instructions: take 1 tab at onset of headache; if no relief may repeat 1 tab after at least 2 hrs; max = 4 tabs/24 hr promethazine 25 mg tablet 25 mg PO Q6H PRN (Reason: nausea and vomiting) Qty: 20 0RF No Action omeprazole 20 mg capsule,delayed release(DR/EC) 20 mg PO BID (DME) Cam Boot Large See Rx Instructions .Route .MEDSUPPLY Qty: 1 0RF Rx Instructions: As directed acetaminophen [Tylenol Extra Strength] 500 mg Tablet 1,000 mg PO Q6H PRN (Reason: Fever Or Pain) famotidine 20 mg Tablet 20 mg PO DAILY ibuprofen [Advil] 200 mg Tablet 800 mg PO Q6H PRN (Reason: Fever Or Pain) Discharge Orders: Discharge ED (Routine); Ordered 03/07/25 Ordered By: Doug De La Vega Discharge Diet: Usual diet Discharge Activity: Increase activity as tolerated Patient Instructions: Migraine Headache (ED), Opioid Safety, Pain Management, Patient Portal & Michaela Instructions Activity Restrictions/Additional Instructions: Thank you for choosing [facility] for your healthcare needs today. It is very important that you follow up as instructed or that you return to the Emergency Department should you have concerns or if your condition changes or worsens in any way. Emergency department visits are focused on emergent conditions, in some cases you may require further evaluation on an outpatient basis. You are seen in the emergency room for headache. Your exam was normal CT of your head did not show any acute abnormalities. You responded well to treatment for migraines. Will discharge home with sumatriptan hand to use as needed for breakthrough headaches you can also use a Phenergan that was given. If you have persistent recurrent headache she should follow-up with your primary care doctor to discuss long-term treatment with medicines to suppress onset of headaches. (Please note that included in your discharge packet is information concerning opioid safety and pain management. This information is given to all patients were discharged from the ER regardless of their discharge diagnosis or the medicines they usually take or are prescribed.) Print Language: Mongolian Coding Level of Care Code ED Bull Float Finisher for Marcela Vitale
[2025-03-07] MEDS: valproic acid inj 500 MG in sodium chloride 0.9% (plus) 50 ML 55 MG IV (08:44)
[2025-03-07 09:15] VITALS: BP 111/69; PULSE 58; O2SAT 100
--- NOTE | 2025-03-07 09:37 | CT_ITS ---
WS: [id number] CT HEAD TECHNIQUE: Noncontrast CT of the head obtained from the skullbase to the vertex. CLINICAL INFORMATION: Worst headache of life COMPARISON: 2012 DLP: 1094.[address] scans at [facility] use at least one of these dose optimization techniques: automated exposure control; mA and/or kV adjustment per patient size (includes targeted exams where dose is matched to clinical indication); or iterative reconstruction. FINDINGS: No evidence of intracranial hemorrhage or mass effect. Ventricular system and basal cisterns are patent. No extra-axial fluid collections. No evidence of mass or mass effect. Normal sanon-white differentiation. Cerebellar tonsillar ectopia. This is unchanged from previous. No hydrocephalus. Paranasal sinuses and mastoid air cells are well aerated. .Normal visualized soft tissues. CT/CT head wo con* [id number] IMPRESSION: 1. No evidence of intracranial hemorrhage or mass effect. 2. Cerebellar tonsillar ectopia unchanged since 2012. Normal fourth ventricle. No hydrocephalus. 3. No acute intracranial findings.
[2025-03-07] MEDS: metoclopramide 5 mg/mL SDV 2 mL 10 MG IVP (11:08)
[2025-03-07 11:14] VITALS: BP 115/70; PULSE 76; O2SAT 100
== END 2025-03-07 11:15 | disposition home or self-care (01) ==
PROVIDERS: Emergency Provider Family Medicine
DX: G43.909 Migraine, unspecified, not intractable, without status migrainosus (principal)
CPT/HCPCS: 36415; 70450; 96365; 96375; 99285; J0780; J1200; J1885; J2765; J3490; J7030; J9999